=== PATIENT | male | born 1950 | race Caucasian/White ===

== ENCOUNTER 2022-10-05 18:52 | Inpatient (IN) | payer MEDICARE, OTHER, SELFPAY ==
[2022-10-05 18:58] VITALS: BP 148/75; PULSE 70; RESP 16; TEMP 36.8; O2SAT 96; BMI 27.3
[2022-10-05 19:01] LABS: Glucose Point of Care 273 mg/dL (70-110)
--- NOTE | 2022-10-05 19:05 | ECG_ITS ---
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 Measurements Intervals [place] Rate: 62 P: 16 [place]: 170 QRS: 63 QRSD: 92 T: 62 QT: 390 QTc: 399 Interpretive Statements SINUS RHYTHM No previous ECG available for comparison Electronically Signed On 10-06-2022 12:16:43 CDT by Harman Holt M.D. [email or web address]
--- NOTE | 2022-10-05 19:06 | CTR_ITS ---
PROCEDURE INFORMATION: Exam: CT Head Without Contrast Exam date and time: 10/05/2022 7:15 PM Age: 72 years old Clinical indication: Visual disturbance; Additional info: Stroke like symptoms TECHNIQUE: Imaging protocol: Computed tomography of the head without contrast. Radiation optimization: All CT scans at this facility use at least one of these dose optimization techniques: automated exposure control; mA and/or kV adjustment per patient size (includes targeted exams where dose is matched to clinical indication); or iterative reconstruction. REPORTING DATA: Count of CT and Cardiac NM exams in prior 12 months: This patient has received 0 known CTs and 0 known cardiac nuclear medicine studies in the 12 months prior to the current study. COMPARISON: No relevant prior studies available. RADIATION DOSE METRICS: Total DLP (mGy-cm): 1213 FINDINGS: Brain: No hemorrhage. No edema. Mild diffuse cerebral atrophy. Old lacunar infarct noted in the right thalamus. No mass effect. Cerebral ventricles: No ventriculomegaly. Paranasal sinuses: Mucosal thickening of the right sphenoid sinus. The rest of the paranasal sinuses are well pneumatized. Mastoid air cells: Visualized mastoid air cells are well aerated. Bones/joints: Unremarkable. No acute fracture. Soft tissues: Unremarkable. CT/CT head wo con* [id number] IMPRESSION: 1. No acute intracranial abnormality. 2. Old lacunar infarct noted in the right thalamus.
--- NOTE | 2022-10-05 21:42 | W.ED.WEAKNES ---
HPI - Weakness General: Chief complaint: Weakness Stated complaint: stroke like symtome Time Seen by Provider: 10/05/22 21:42 History of Present Illness: 72-year-old gentleman presenting with abnormal neurologic symptoms primarily pain in the back of his head and left vision double vision with new abnormal left ocular movements. Reports having a complicated dental extraction under anesthesia approximately 1 week ago and noticed mild symptoms especially pain however subsequently had stitches removed and noticed the symptoms more profoundly. Intensity is moderate-severe. Worse with lateral gaze. No other specific changes in health, exacerbating, or alleviating factors identified. Onset (ago): week(s) Severity: moderate Exacerbating factors: other Associated symptoms: Reports headache(s) Review of Systems General: Reports: 10 or more systems reviewed and unremarkable except in HPI and below Neuro: Reports: headache(s) PFSH ED PFSH: Medical History (Updated 10/18/22 @ 08:02 by Nas Vasquez MD) Diabetes Hyperlipidemia Hypertension Surgical History (Updated 10/18/22 @ 08:02 by Nas Vasquez MD) No significant past surgical history Physical Exam Const: COMMON NORMALS: patient oriented x3 and alert GENERAL APPEARANCE: cooperative and well developed HENMT: COMMON NORMALS: normocephalic and atraumatic HEAD & SCALP: normocephalic and atraumatic Eye: COMMON NORMALS: Equal, round and reactive pupils present, negative for EOMs intact bilaterally, conjunctivae normal and normal visual khoury by confrontation CONJUNCTIVA: Yes conjunctivae normal SCLERA: sclerae normal PUPIL: Yes Equal, round and reactive pupils present Neck/C-Spine: COMMON NORMALS: supple GENERAL: Yes trachea midline Resp: COMMON NORMALS: normal respiratory effort EFFORT & INSPECTION: Yes able to speak in complete sentences Cardio: COMMON NORMALS: regular rate and regular rhythm RATE: regular rate RHYTHM: regular rhythm GI: COMMON NORMALS: Soft to palpation PALPATION: Yes Soft to palpation and No Tenderness to palpation present (GI) PERCUSSION: normal to percussion Extremity: GENERAL: Yes normal exam except as noted and No edema Neuro: COMMON NORMALS: patient oriented x3, moves all extremities, no focal motor deficits and no sensory deficits noted; negative for CN's II-XII intact bilaterally (Left MANSOOR) SENSORIUM/ORIENTATION: Yes alert and No Orientation impaired Psych: COMMON NORMALS: mental status grossly normal and Normal thought process present THOUGHT PROCESS: Normal thought process present Course Vital Signs: Vital signs: Vital Signs Temperature 97.9 F 10/09/22 11:37 Pulse Rate 59 L 10/09/22 11:37 Respiratory Rate 20 H 10/09/22 11:37 Blood Pressure 135/73 10/09/22 11:37 Pulse Oximetry 94 10/09/22 11:37 Oxygen Delivery Me thod Room Air 10/09/22 11:37 MDM - Weakness Medical Decision Making 72-year-old gentleman presenting for headache and visual disturbance. Concern for strokelike symptoms with what appears to be intranuclear ophthalmoplegia involving the left eye. The left eye will not cross midline to gaze to the right. No proptosis. PERRLA. Labs with no leukocytosis, mild hemoconcentration. Metabolic panel without acute electrolyte derangement. No UTI. CT head negative for hemorrhage or mass. Normal intraocular pressures by tonometer. Likely stroke with MANSOOR however there are mimics and patient requires further evaluation inpatient optimization of this is stroke for prevention of further strokes. The results of ED evaluation were discussed with the patient including plan for admission due to requirement for level of care not available if discharged to prevent significant worsening/deterioration. Patient agreeable with plan. Discussed with hospitalist service who was agreeable to admit patient. Medical Records I reviewed the patient's medical records. Lab Data I reviewed the patient's lab results. 10/09/22 04:50 10/09/22 04:[address] 10/05/22 19:06 IMPRESSION: 1. No acute intracranial abnormality. 2. Old lacunar infarct noted in the right thalamus. Head MRI 10/06/22 02:16 IMPRESSION: 1. Quality is compromised by motion artifact. 2. No acute infarct. 3. Moderate small vessel chronic ischemic disease and remote RIGHT thalamic lacunar infarct. 4. RIGHT sphenoid sinus disease. Head MRA 10/06/22 12:06 IMPRESSION: 1. No [place] aneurysm. 2. No vascular malformation identified. 3. Very mild atherosclerosis distal carotid arteries and the proximal middle cerebral arteries. Brain/Orbits MRI 10/06/22 12:29 IMPRESSION: Negative MRI orbits. No masses or abnormal enhancement. No abnormality noted along the course of the 3rd cranial nerve. Laboratory Results WBC 9.5 10^3/uL (4.0-10.0) 10/07/22 04:02 RBC 5.58 10^6/uL (4.1-5.3) H 10/07/22 04:02 Hgb 15.9 g/dL (11.7-16.6) 10/07/22 04:02 Hct 48.2 % (42.0-52.0) 10/07/22 04:02 MCV 86.4 fl (80-94) 10/07/22 04:02 MCH 28.5 pg (28.0-34.0) 10/07/22 04:02 MCHC 33.0 g/dL (30.0-36.0) 10/07/22 04:02 RDW 13.6 % (12.1-15.1) 10/07/22 04:02 Plt Count 210 10^3/cmm (130-400) 10/07/22 04:02 MPV 10.9 fL (7.4-10.4) H 10/07/22 04:02 Neut % (Auto) 89.6 % 10/07/22 04:02 Lymph % (Auto) 7.5 % 10/07/22 04:02 [place] % (Auto) 2.5 % 10/07/22 04:02 Eos % (Auto) 0.0 % 10/07/22 04:02 Baso % (Auto) 0.1 % 10/07/22 04:02 Neut # (Auto) 8.54 10^3/uL (1.8-7.7) H 10/07/22 04:02 Lymph # (Auto) 0.7 10^3/uL (0.8-4.8) L 10/07/22 04:02 [place] # (Auto) 0.2 10^3/uL (0.2-0.9) 10/07/22 04:02 Eos # (Auto) 0.0 10^3/uL (0.0-0.8) 10/07/22 04:02 Baso # (Auto) 0.0 10^3/uL (0.0-0.1) 10/07/22 04:02 Nucleated RBC % (auto) 0 % 10/07/22 04:02 Nucleated RBCs # 0.0 /100WBC 10/07/22 04:02 ESR 14 mm/hr (0-10) H 10/06/22 10:17 Sodium 135 mmol/L (136-145) L 10/07/22 04:02 Potassium 4.3 mmol/L (3.5-5.1) 10/07/22 04:02 Chloride 101 mmol/L (98-107) 10/07/22 04:02 Carbon Dioxide 21 mmol/L (22-29) L 10/07/22 04:02 Anion Gap 17.3 (5-19) 10/07/22 04:02 BUN 20 mg/dL (8-23) 10/07/22 04:02 Creatinine 0.7 mg/dL (0.7-1.2) 10/07/22 04:02 GFR Calculation Not Reportable 10/07/22 04:02 Glucose 211 mg/dL (65-115) H 10/07/22 04:02 POC Glucose 196 mg/dL (70-110) H 10/07/22 07:53 Estimat Average Glucose 214 10/06/22 05:21 Hemoglobin A1c 9.1 % (4.0-6.0) H 10/06/22 05:21 Calculated Osmolality 289 mOsm/kg (285-295) 10/07/22 04:02 Lactic Acid 0.9 mmol/L (0.5-2.2) 10/06/22 05:21 Calcium 8.6 mg/dL (8.5-10.5) 10/07/22 04:02 Magnesium 2.1 mg/dL (1.7-2.3) 10/07/22 04:02 Total Bilirubin 0.4 mg/dL (0.15-1.2) 10/07/22 04:02 AST 12 U/L (0-40) 10/07/22 04:02 ALT 11 U/L (0-41) 10/07/22 04:02 Alkaline Phosphatase 66 U/L (40-130) 10/07/22 04:02 C-Reactive Protein 4.7 mg/L (0.0-4.9) 10/06/22 10:17 Total Protein 6.6 g/dL (6.6-8.7) 10/07/22 04:02 Albumin 3.7 g/dL (3.5-5.2) 10/07/22 04:02 Globulin 2.9 g/dL (1.3-4.6) 10/07/22 04:02 Triglycerides 184 mg/dL (0-150) H 10/06/22 05:21 Cholesterol 149 mg/dL (0-200) 10/06/22 05:21 LDL Cholesterol, Calc 77 mg/dL (50-129) 10/06/22 05:21 HDL Cholesterol 35 mg/dL (60-100) L 10/06/22 05:21 LDL/HDL Ratio 2.20 RATIO (0.00-3.22) 10/06/22 05: Cholesterol/HDL Ratio 4.26 mg/dL (1.0-5.00) 10/06/22 05:21 Vitamin B12 > 2000 pg/mL (232-1245) H 10/06/22 10:17 Folate > 20.0 ng/mL (4.5-32.2) 10/06/22 10:17 Procalcitonin 0.04 ng/mL (0-0.5) 10/06/22 10:17 TSH 1.06 uIU/mL (0.27-4.20) 10/06/22 05:21 Urine Color Light yellow (Yellow) 10/05/22 22:00 Urine Appearance Clear (CLEAR) 10/05/22 22:00 Urine pH 7 (5-7) 10/05/22 22:00 Ur Specific [place] 1.005 (1.005-1.030) 10/05/22 22:00 Urine Protein Neg (Negative) 10/05/22 22:00 Urine Glucose (UA) 4+ (Normal) H 10/05/22 22:00 Urine Ketones 1+ (Negative) H 10/05/22 22:00 Urine Blood Neg (Negative) 10/05/22 22:00 Urine Nitrate Negative (Negative) 10/05/22 22:00 Urine Bilirubin Neg (Negative) 10/05/22 22:00 Urine Urobilinogen Neg mg/dL (Negative) 10/05/22 22:00 Ur Leukocyte Esterase Negative (Negative) 10/05/22 22:00 HELEN IFA Animal Tis Res Negative (NEGATIVE) 10/06/22 10:17 GLORIA-1 Antibody <1.0 neg AI (<1.0 NEG) 10/06/22 10:17 SS-A Antibody <1.0 neg AI (<1.0 NEG) 10/06/22 10:17 SS-B Antibody <1.0 neg AI (<1.0 NEG) 10/06/22 10:17 Sm (Perez) Antibody <1.0 neg AI (<1.0 NEG) 10/06/22 10:17 SPEECH LANG PATH Antibody <1.0 neg AI (<1.0 NEG) 10/06/22 10:17 Scl-70 Antibody <1.0 neg AI (<1.0 NEG) 10/06/22 10:17 Anti-ds DNA IgG (Crith) Negative (NEGATIVE) 10/06/22 10:17 Centromere B Antibody <1.0 neg AI (<1.0 NEG) 10/06/22 10:17 Anti-MuSK Ab Method See note 10/06/22 10:17 Anti-MuSK Tech Res See note 10/06/22 10:17 Anti-MuSK Ab Interp See note 10/06/22 10:17 Anti-MuSK Ab Comment See note 10/06/22 10:17 Anti-MuSK References See note 10/06/22 10:17 Thyroid Peroxidase Ab <1 IU/mL (<9) 10/06/22 10:17 Acetylchol Rcpt Bind Ab <0.30 nmol/L 10/06/22 10:17 Complement C3c 116 mg/dL (82-185) 10/06/22 10:17 Complement C4c 22 mg/dL (15-53) 10/06/22 10:17 CH50 Classical Pathway 42 U/mL (31-60) 10/06/22 10:17 RPR Nonreactive (Nonreactive) 10/06/22 10:17 Lyme Ab (Western Blot) <0.90 index 10/06/22 10:17 Lyme IgG (Western Blot) Cancelled 10/06/22 10:17 Lyme IgG (Western Blot 2) Cancelled 10/06/22 10:17 Lyme IgG 18 kDa Band Cancelled 10/06/22 10:17 Lyme IgG 23 kDa Band Cancelled 10/06/22 10:17 Lyme IgG 28 kDa Band Cancelled 10/06/22 10:17 Lyme IgG 30 kDa Band Cancelled 10/06/22 10:17 Lyme IgG 39 kDa Band Cancelled 10/06/22 10:17 Lyme IgG 41 kDa Band Cancelled 10/06/22 10:17 Lyme IgG 45 kDa Band Cancelled 10/06/22 10:17 Lyme IgG 58 kDa Band Cancelled 10/06/22 10:17 Lyme IgG 66 kDa Band Cancelled 10/06/22 10:17 Lyme IgG 93 kDa Band Cancelled 10/06/22 10:17 Lyme IgM Ab (WB) Cancelled 10/06/22 10:17 Lyme IgM Ab (Immblot) Cancelled 10/06/22 10:17 Lyme IgM 23 kDa Band Cancelled 10/06/22 10:17 Lyme IgM 39 kDa Band Cancelled 10/06/22 10:17 Lyme IgM 41 kDa Band Cancelled 10/06/22 10:17 E. chaffeensis IgG Ab <1:64 10/06/22 10:17 E. chaffeensis IgM Ab <1:20 10/06/22 10:17 E. chaffeensis Interp See note 10/06/22 10:17 E. chaffeensis Comment Not Reportable 10/06/22 10:17 Rickettsia IgG Ab Not detected 10/06/22 10:17 Rickettsia IgM Ab Not detected 10/06/22 10:17 Discharge Plan Discharge Patient Disposition: Placed in Observation Admit Provider: Rima Borrego Clinical Impression: Stroke, MANSOOR (internuclear ophthalmoplegia) Discharge Diet: Usual diet Discharge Activity: Resume usual activity Coding Level of Care Code ED Optical Effects Layout Person for Flako Gardner
[2022-10-05 22:16] LABS: Add Urine Microscopic? NO; Charge for UA Resulting for Rev
[2022-10-05 22:19] LABS: Basophils # 0.1 10^3/uL (0.0-0.1); Basophils % 0.6 %; Bilirubin Urine Neg (Negative); Blood Urine Neg (Negative); Eosinophils # 0.2 10^3/uL (0.0-0.8); Eosinophils % 1.8 %; Glucose Urine UA 4+ (Normal); Hematocrit 52.5 % (42.0-52.0); Hemoglobin 16.8 g/dL (11.7-16.6); Ketones Urine 1+ (Negative); Leukocyte Esterase Urine Negative (Negative); Lymphocytes # 1.7 10^3/uL (0.8-4.8); Lymphocytes % 19.4 %; Mean Corpuscular Hemoglobin 28.4 pg (28.0-34.0); Mean Corpuscular Volume 88.7 fl (80-94); Mean Platelet Volume 10.9 fL (7.4-10.4); Monocytes % 10.7 %; Neutrophils # 6.02 10^3/uL (1.8-7.7); Neutrophils % 67.3 %; Nitrate Urine Negative (Negative); Nucleated Red Blood Cells % 0 %; Platelet Count 207 10^3/cmm (130-400); Protein Urine Neg (Negative); Red Blood Count 5.92 10^6/uL (4.1-5.3); Specific Gravity, Urine 1.005 (1.005-1.030); Urine Appearance Clear (CLEAR); Urine Color Light yellow (Yellow); Urobilinogen Urine Neg (Negative); pH Urine 7 (5-7)
[2022-10-05 22:22] VITALS: BP 165/75; PULSE 60; RESP 16; O2SAT 97
[2022-10-05 22:30] LABS: Anion Gap 17.7 (5-19); Blood Urea Nitrogen 13 mg/dL (8-23); Calcium 9.7 mg/dL (8.5-10.5); Carbon Dioxide 26 mmol/L (22-29); Chloride 98 mmol/L (98-107); Glucose 262 mg/dL (65-115); Osmolality Calculated 293 mOsm/kg (285-295); Potassium 4.7 mmol/L (3.5-5.1); Sodium 137 mmol/L (136-145)
[2022-10-05 23:15] VITALS: BP 144/81; PULSE 62; RESP 16; O2SAT 95
[2022-10-06] VITALS (14 sets, daily range): BP systolic 120–157; BP diastolic 51–82; PULSE 56–72; RESP 16–18; TEMP 36.4–36.8; O2SAT 91–95
[2022-10-06] MEDS: tetracaine 0.5% Op Soln 4 mL Btl 1 DROP EYE-BOTH (00:46)
--- NOTE | 2022-10-06 00:56 | PM.HP ---
Providers/Chief Complaint Admitting Physician: Rima Borrego MD Chief Complaint: stroke like symtome History of Present Illness Travis Easton is a 72 year old male with past medical history of diabetes, hypertension, hyperlipidemia who presented to the hospital today with complaint of lazy eye . He states that his eye has been going outward and not tracking as it showed. His left eye is doing what ever it wants to do and he is unable to control it. He is also been having some pain in the left eye socket and back of head and he has been taking Tylenol for it. 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 When he covers his left eye he is able to do okay and the pain gets better however when he tries to see out of both eyes he is experiencing double vision especially when going up and down stairs. He says the symptoms for started about 5 days ago. And since he has not gotten better he decided to come to the ER today. 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 Denies having a history of stroke however CT head in the ER today showed a remote old lacunar infarct. I am not sure if patient was aware of this. He says he went to the dentist 5 days ago and had a wisdom tooth extraction done with another tooth that was right in front of it. He says there was some complication and he had to spend 3 hours and oral surgery. He believes since then his symptoms have started. Denies slurred speech denies any weakness in the body or any other focal neurological symptoms at this time. Denies being nauseous. Denies seeing halos around his eyes. Eye has not been red and is not fixed and hard. Denies a history of glaucoma or any other ophthalmologic issues. He says also 5 days ago for about 2 to 3 hours he had a lot of gas and had some chest pain associated with it however after gas was relieved and he had to sit up to try to burp he felt better. He has had a stress test before but that was few years ago and it was normal at the time. He says he takes a lot of vitamins such as vitamin C vitamin D zinc cinnamon and men's vitamins. He is quite well versed with his history. Daughter is present at bedside. ED course: CT head showed old lacunar infarct involving the right thalamus on arrival blood pressure 165/75 respirate 16, pulse 60, temperature 98.2, saturating 97% on room air. WBC 9.0, hemoglobin 16.8, platelets 207, glucose 4+ urine, ketones 1+ in urine. Negative UA otherwise. Hemoglobin 16.8. ER examined the patient and noted that left eye will not cross midline to gaze to the right. No proptosis PERRLA. Intraocular pressures were checked. Left 12, right 13. Medications/Allergies Allergies Allergy/AdvReac Type Severity Reaction Status Date / Time No Known Allergies Allergy Verified 10/05/22 19:06 Vitals/I&O/Wt Last Vital Signs Temp 98.2 F 10/05/22 18:58 Pulse 62 10/05/22 23:15 Resp 16 10/05/22 23:15 BP 144/81 10/05/22 23:15 Pulse Ox 95 10/05/22 23:15 O2 Del Method Room Air 10/05/22 18:58 Weight last 48 hrs Weight 86.636 kg Physical Exam Narrative: General: Alert oriented x3, patient seen sitting up in bed appearing comfortable at this time no acute distress. HEENT: Normocephalic, atraumatic, EOMI, breathing room air. Cardio: Regular rate rhythm, normal S1-S2 Respiratory: Good bilateral air entry, no wheezes no rhonchi appreciated GI: Abdomen soft, nontender, nondistended, bowel sounds + Behavior: Appropriate and cooperative Extremities: Pulses 2+, no edema, no cyanosis Neuro: Left eyelid droopy. Left side of face slightly droopy compared to right. Left eye does not cross midline to gaze to the right. eyes warm not tender to touch not hard and fixed. Left eye unable to track. Strength equal upper and lower extremity. Left side 4 out of 5, right side 5 out of 5. Ogwg-no-mddy normal, [id number] normal. Face symmetrical midline. Data 10/05/22 22:00 10/05/22 22:00 A&P Assessment and plan (1) Stroke: (2) MANSOOR (internuclear ophthalmoplegia): (3) Diabetes: (4) Hypertension: (5) Hyperlipidemia: Plan #New onset internuclear ophthalmoplegia, diplopia #History of prior lacunar infarct right thalamus #Diabetes mellitus #Hypertension #Hyperlipidemia ? CT head negative for new stroke. I will check MRI brain without contrast ? We will start patient on aspirin and Plavix. Add atorvastatin 80 daily ? I do not believe this is glaucoma or multiple sclerosis. Intraocular pressures are also normal. Denies seeing any halos around objects, redness in the eye, warmth or hard feeling in eyeball. Has not experiencing any blurry vision. ? His eye pain is most likely attributed to the fact that left eye is not in line with the right eye and he is having diplopia. I would recommend we patch the left eye for time being. Tylenol does relieve the pain. We will continue on that. ? Med rec needs to be completed. Patient has given a list of medications but as of now it has been misplaced. The only medicine he told me verbally was Farxiga. Vitamin E vitamin D zinc cinnamon and vitamins. Once I have the full list I will order his home medications. Apparently he is also on blood pressure medicine at home and is well controlled. Patient is not on insulin from what he told me verbally. ? I would recommend neurology consult once MRI is complete. Symptoms started 4 to 5 days ago. He is outside the window for tPA at this time. ? Check hemoglobin A1c, TSH, lipid profile, vitamin B12 ? Low-dose intensity sliding scale insulin ? Check echocardiogram ? Placed on cardiac telemetry ? Neuro check every 2 hours ? Fall precautions Full code SCDs, heparin subcu twice daily Attestations Medical Necessity Statement*: Observation for MANSOOR Coding Level of Care Code G0425 (30 min) TH Encounter Time (min): 45 Patient seen via Telehealth in the acute care setting (hospital or ED location) by agreement and consent of patient or patient sales representative printing paper. Telehealth technology used during the visit includes video and audio. This patient encounter is appropriate and reasonable under the circumstances given the patient?s particular presentation at this time. The patient has been advised of the potential risks and limitations of this mode of treatment (including but not limited to the absence of in-person examination at this time) and has agreed to be treated by an off-site physician for this visit. If deemed clinically necessary from this telehealth visit, or if condition or consent for telehealth visit changes, an in-person visit will be arranged. For this encounter, total time for the origination of telehealth care on this date is as shown. Diagnoses Stroke I63.9 MANSOOR (internuclear ophthalmoplegia) H51.20 Diabetes E11.9 Hypertension I10 Hyperlipidemia E78.5
[2022-10-06] MEDS: acetaminophen 325 mg Tablet 650 MG PO ×2 (01:36→09:09)
--- NOTE | 2022-10-06 02:16 | MR_ITS ---
WS: [id number] MRI BRAIN WITHOUT CONTRAST HISTORY: internuclear ophthalmoplegia COMPARISON: None available. TECHNIQUE: Diffusion imaging, multiplanar T1, T2 and FLAIR imaging obtained. Multisequence significant motion artifact. No evidence for acute infarct or hemorrhage. Martinez-white matter differentiation is normal. No acute infarct. Numerous T2 foci of increased signal scattered throughout the brain. There is invol vement of the [place] and the supratentorial brain. No prior large territory infarct. Very small RIGHT t halamic infarct is better identified on the CT. Ventricles and extra-axial spaces are normal. No inferior displacement of cerebellar tonsils. The sella turcica and pituitary gland are unremarkabl e. Dural venous sinuses and [place] demonstrate no abnormality on this unenhanced studies. Paranasal sinuses: Moderate mucoperiosteal thickening and a small air-fluid level RIGHT sphenoid sinu s. Mastoid air cells: Normal. Calvarium and scalp: Intact. MR/MR head wo con* [id number] IMPRESSION: 1. Quality is compromised by motion artifact. 2. No acute infarct. 3. Moderate small vessel chronic ischemic disease and remote RIGHT thalamic la cunar infarct. 4. RIGHT sphenoid sinus disease.
--- NOTE | 2022-10-06 02:38 | USCV_ITS ---
Travis Easton Age: 72 Gender: M : 1950 Exam Date: 10/06/2022 07:33 Ordering Phys: Rima Borrego MD Technologist: Raciel Blanchard [place] [facility] [place]: chest pain BP: 132 / 83 HR: 57 Rhythm: Sinus Technical Quality: Adequate MEASUREMENTS (Male / Female) Normal Values 2D ECHO LV Diastolic Diameter PLAX 4.4 cm 4.2 - 5.9 / 3.9 - 5.3 cm LV Systolic Diameter PLAX 2.7 cm IVS Diastolic Thickness 1.2 cm 0.6 - 1.0 / 0.6 - 0.9 cm IVS Systolic Thickness 1.7 cm LVPW Diastolic Thickness 1.3 cm 0.6 - 1.0 / 0.6 - 0.9 cm LVPW Systolic Thickness 1.8 cm LV Ejection Fraction 2D Teich 69.1 % LV Ejection Fraction MOD 2C 61.3 % LV Ejection Fraction 2C AL 60.7 % LA Diameter 3.5 cm M-MODE LV Diastolic Diameter MM 5.1 cm 4.2 - 5.9 / 3.9 - 5.3 cm LV Systolic Diameter MM 3.4 cm LV Ejection Fraction MM Teich 61.2 % IVS Diastolic Thickness MM 1.2 cm 0.6 - 1.0 / 0.6 - 0.9 cm IVS Systolic Thickness MM 1.9 cm LVPW Diastolic Thickness MM 1.3 cm 0.6 - 1.0 / 0.6 - 0.9 cm LVPW Systolic Thickness MM 1.7 cm RV Diastolic Diameter MM 1.9 cm Aortic Annulus Diameter 3.7 cm LA Ao Ratio MM 0.9 MV E Point Septal Separation 0.7 cm DOPPLER AV Peak Velocity 153.0 cm/s LVOT Peak Velocity 119.0 cm/s MV Area PHT 2.9 cm squared Mitral E to A Ratio 1.0 MV E' Velocity 43.0 cm/s Mitral E to MV E' Ratio 10.2 Mitral E to LV E' Lateral Ratio 9.0 Mitral E to LV E' Septal Ratio 11.8 TR Peak Velocity 164.8 cm/s TR Peak Gradient 10.9 mmHg RV Acceleration Time 0.1 s FINDINGS Left Ventricle Left ventricle is normal size. LV systolic function is normal with EF 55 to 60%. No regional wall motion abnormalities are seen. Right Ventricle Normal in size and function Right Atrium Normal in size Left Atrium Dilated Mitral Valve Strcuturally normal mitral valve. Trace mitral regurgitation. Aortic Valve Structurally normal aortic valve. No significant stenosis or regurgitation seen. Tricuspid Valve Mild tricuspid regurgitation. Insufficient TR jet to calculate RVSP Pulmonic Valve Not well visualized Pericardium Normal Aorta Normal in size IVC Appears to be normal CONCLUSIONS LV systolic function is normal with EF of 55 to 60%. Left atrial dilation Trace mitral regurgitation Mild tricuspid regurgitation No comparison studies are available Harman Holt MD (Electronically Signed) Final Date: 06 October 2022 12:42 S
[2022-10-06] MEDS: sodium chloride 0.9% 1,000 ML 75 ML IV ×2 (02:41→20:18)
[2022-10-06] MEDS: heparin 5,000 unit/mL INJ 1 mL 5000 UNIT SUBCUT ×2 (02:41→12:03)
[2022-10-06 06:23] LABS: Lactic Sepsis W/Reflex 0.9 mmol/L (0.5-2.2)
[2022-10-06] MEDS: ibuprofen 200 mg Tablet 400 MG PO (06:34)
[2022-10-06 06:35] LABS: Chol HDL Ratio 4.26 mg/dL (1.0-5.00); Cholesterol 149 mg/dL (0-200); HDL Cholesterol 35 mg/dL (60-100); LDL Cholesterol Calculated 77 mg/dL (50-129); Thyroid Stimulating Hormone 1.06 uIU/mL (0.27-4.20); Triglycerides 184 mg/dL (0-150)
[2022-10-06 06:39] LABS: Glucose Point of Care 361 mg/dL (70-110)
[2022-10-06 07:00] LABS: Estmated Average Glucose 214; Hemoglobin A1C 9.1 % (4.0-6.0)
[2022-10-06] MEDS: amlodipine 5 mg Tablet PO (08:49)
[2022-10-06] MEDS: aspirin 81 mg EC Tablet PO (08:51)
[2022-10-06] MEDS: clopidogrel 75 mg Tablet PO (08:51)
[2022-10-06] MEDS: pantoprazole DR 40 mg Tablet PO (08:51)
[2022-10-06 11:03] LABS: Erythrocyte Sedimentation Rate 14 mm/hr (0-10)
[2022-10-06 11:20] LABS: Rapid Plasma Reagin Syphilis Nonreactive (Nonreactive)
[2022-10-06] MEDS: insulin glargine 100 units/1 mL 5 UNIT SUBCUT (11:34)
[2022-10-06] MEDS: methylPREDNISolone sod succ 1,000 MG in sodium chloride 0.9% 250 ML 258 MG IV (11:35)
[2022-10-06 12:02] LABS: Glucose Point of Care 174 mg/dL (70-110)
[2022-10-06] MEDS: insulin lispro 100 unit/1 mL SUBCUT ×3 (12:02→21:24)
--- NOTE | 2022-10-06 12:06 | MR_ITS ---
WS: [id number] MRA ANGIOGRAPHY [place] HISTORY: cn3 palsy, question aneurysm. COMPARISON: None available. TECHNIQUE: 3-D MR angiography is performed of the [place]. All images are reviewed including source images. Distal vertebral and basilar arteries are intact with no significant stenosis or plaque. Posterior ce rebral arteries are normal course and caliber. Posterior communicating arteries are both patent. Intracranial portion of the internal carotid arteries are normal course. Very minimal atherosclerotic plaque in the cavernous sinuses and the M1 segments. Slightly smaller RIGHT M1 segment. No high-grad e occlusion. No aneurysm. No significant atherosclerosis, stenosis or aneurysm identified. Middle and anterior cerebral arteries are patent. Anterior communicating artery is also normal. No vascular mal formations or mass effect upon the [place]. MR/MR angio head wo con [id number] IMPRESSION: 1. No [place] aneurysm. 2. No vascular malformation identified. 3. Very mild atherosclerosis distal carotid arteries and the proximal middle c erebral arteries.
[2022-10-06 12:19] LABS: Vitamin B12 > 2000 pg/mL (232-1245)
--- NOTE | 2022-10-06 12:29 | MR_ITS ---
WS: [id number] MRI ORBIT with and without CONTRAST. COMPARISON: Prior noncontrast MRI 10/06/2022. Multiplanar, multisequence imaging is performed with and without contrast. MultiHance 20 mL IV. Symmetric appearance of the orbits and globes. No soft tissue masses are identified. No abnormality. Meckel's cave or along the anterior brain stem through the prepontine cistern and intrapeduncular cis tern. No masses or abnormal enhancement. No displacement of the soft tissues or asymmetry. No pituita ry mass. Ventricles are normal size. Very mild cerebral atrophy. Again noted is moderate right-sided sphenoid sinusitis. No abscess cavities are identified in the reg ion of the 3rd cranial nerve. MR/MR head orbits wo/w* 86146/43 IMPRESSION: Negative MRI orbits. No masses or abnormal enhancement. No abnormality noted along the course of the 3rd cranial nerve.
--- NOTE | 2022-10-06 12:47 | PC.CHAP ---
Pastoral Care Encounter/Spiritual Assessment Type of Contact [] Declined account resolution analyst visit [] Patient/Family/Request visit [] Outpatient visit [] Follow-up visit [] Physician referral [] Code/Alert [x] Routine visit [] Staff referral [] Actively dying [] Patient sleeping [] Family support [] [] Out of room [] Palliative care [] [x] Receiving care in room [] Pre-surgical visit [] Trauma [] Long length of stay [] ICU visit [] Other: Relational/Emotional Strength [x] Patient feels connected with others/family/visitors/staff [] Distress [] Loneliness/isolation [] Abandonment Spirituality of Patient [x] Person of Raegan [] Attends Roman Catholic of their Raegan [x] Believes in Prayer [] Reads Bible or Presybeterian materials [] There are Spiritual issues to be addressed Commercial Driver Interventions [x] Prayer [x] Active listening [x] Non-anxious presence [x] Spiritual/emotional support [] Crisis/trauma care [x] Spiritual counseling [] Bereavement support [] Provided bereavement packet [] Provided Bible/devotional materials [] Provided toy/stuffed animal, coloring book to patient or family member [] Provided Communion [] Anointing/[place] [] Salvation [x] Completed spiritual assessment [] Other: Impact on Illness or Injury [] Angry [] Fearful [] Anxious [] Often cries [] Exhaustion [] Unable to work [] Unable to attend adventism [] Unable to walk/stand [] Unable to read [] Unable to drive [] Unable to eat/drink [] Unable to sleep [] Unable to be with family [] Patient intubated [] Other: Summary checking with doctor about more teatments has a good attitude well go home Time spent with patient 10 mins
[2022-10-06 12:55] LABS: Folate Level > 20.0 ng/mL (4.5-32.2)
[2022-10-06] MEDS: gadobenate dimeglumine 20 mL vial IV (13:18)
[2022-10-06 14:21] LABS: C Reactive Protein 4.7 mg/L (0.0-4.9)
[2022-10-06 14:28] LABS: Procalcitonin 0.04 ng/mL (0-0.5)
[2022-10-06 14:53] LABS: Glucose Point of Care 259 mg/dL (70-110)
--- NOTE | 2022-10-06 16:42 | P.CONIM_ITS ---
Providers/Reason For Consult Consulting Physician/Specialty*: Anupam Manuel MD general surgery Reason for Consult*: Need for temporal artery biopsy Requesting Physician: See below Attending Physician: Regino Cm MD History of Present Illness History of Present Illness Travis Easton is a 72 year old male who comes in stroke like symptoms with right sided headache and diplopia and problems with vision affecting ambulation. He currently had right eye patch on. There is concern patient may have temporal arteritis and is on steroids. He is to get MRA of brain looking for AVM. If negative then will proceed with bilateral temporal artery biopsies. Review of Systems Narrative: Constitutional: denies rigors, singnificant weight gain, increased appetite HEENT: denies chronic cough, blurry vision, excessive tearing, eye pain, flashing lights, odynophagia, painful mastication, change in voice, change in taste, chronic sore throat, hypersalivation Heart: denies racing heart, palpitations, othropnea, PND Lungs: denies hemoptysis, pain with deep inspiration, chronic bronchitis GI: denies hematemesis, hematochezia, dysphagia, tenesmus : denies polyuria, hematuria, painful micturation Musculoskeletal: denies hemarthrosis, Muscle wasting Neuro: denies new onset syncope, dysesthesia, ptosis face SKin: denies new onset hyperalgia, new rash new cyanosis Endocrine: denies new polyuria, polydipsia, polyphagia, heat intolerance, excessive energy Hem/Onc: denies new petechiae, swollen glands, new excessive epstaxis Psych: denies racing thought Medications/Allergies Home Medications Medication Instructions Recorded Confirmed Last Taken Type albuterol 90 mcg/actuation aerosol 180 mcg inhalation Q4H PRN cough 10/06/22 10/06/22 Unknown History inhaler or wheezing albuterol sulfate 2.5 mg/3 mL 2.5 mg inhalation QID PRN cough or 10/06/22 10/06/22 Unknown History (0.083 %) solution for nebulization wheezing amlodipine 5 mg tablet 5 mg PO DAILY 10/06/22 10/06/22 Unknown History antiox.multivit [id number] 280 1 cap PO DAILY 10/06/22 10/06/22 Unknown History mg-lutein 10 mg-zeaxanthin 2 mg capsule (I-Caps) aspirin 81 mg tablet,delayed 81 mg PO DAILY 10/06/22 10/06/22 Unknown History release atorvastatin 10 mg tablet 10 mg PO QPM 10/06/22 10/06/22 Unknown History cholecalciferol (vitamin D3) 50 50 mcg PO DAILY 10/06/22 10/06/22 Unknown History mcg (2,000 unit) capsule (Vitamin D3) cinnamon bark 500 mg capsule 500 mg PO DAILY 10/06/22 10/06/22 Unknown History (Cinnamon) dapagliflozin 10 mg tablet 10 mg PO DAILY 10/06/22 10/06/22 Unknown History (Farxiga) diclofenac sodium 1 % topical gel 2 g topical QID 10/06/22 10/06/22 Unknown History fluticasone fur. 100 mcg-umeclid 1 inh inhalation DAILY 10/06/22 10/06/22 Unkno wn History 62.5 mcg-vilant 25 mcg inhalat.powder (Trelegy Ellipta) garlic 200 mg tablet 200 mg PO DAILY 10/06/22 10/06/22 Unknown History irbesartan 300 mg tablet 300 mg PO DAILY 10/06/22 10/06/22 Unknown History metformin 1,000 mg tablet 1,000 mg PO BIDWMEAL 10/06/22 10/06/22 Unknown History multivitamin 1 tab PO DAILY 10/06/22 10/06/22 Unknown History omega-3 fatty acids-vitamin E 1 cap PO DAILY 10/06/22 10/06/22 Unknown History 1,000 mg capsule vitamin E 50 unit capsule 50 unit PO DAILY 10/06/22 10/06/22 Unknown History zinc 50 mg tablet 50 mg PO DAILY 10/06/22 10/06/22 Unknown History Allergies Allergy/AdvReac Type Severity Reaction Status Date / Time No Known Allergies Allergy Verified 10/05/22 19:06 Current Medications Generic Name Dose Route Start Last Admin Trade Name Freq PRN Reason Stop Dose Admin Acetaminophen 650 mg 10/06/22 00:57 10/06/22 09:09 Acetaminophen 325 Mg Tablet PO 650 mg Q6H PRN Administration Mild/Mod Pain Or Temp >/= 101 Amlodipine Besylate 5 mg 10/06/22 09:00 10/06/22 08:49 Amlodipine 5 Mg Tablet PO 5 mg DAILY POWER Administration Aspirin 81 mg 10/06/22 09:00 10/06/22 08:51 Aspirin 81 Mg Ec Tablet PO 81 mg DAILY POWER Administration Clopidogrel Bisulfate 75 mg 10/06/22 09:00 10/06/22 08:51 Clopidogrel 75 Mg Tablet PO 75 mg DAILY POWER Administration Heparin Sodium (Porcine) 5,000 unit 10/06/22 01:00 10/06/22 12:03 Heparin 5,000 Unit/Ml Inj 1 Ml SUBCUT 5,000 unit Q12H POWER Administration Sodium Chloride 1,000 mls @ 50 mls/hr 10/06/22 01:00 10/06/22 14:12 Sodium Chloride 0.9% IV 75 mls/hr .Q20H POWER Infusion Methylprednisolone Sodium 258 mls @ 258 mls/hr 10/06/22 11:00 10/06/22 14:12 Succinate 1,000 mg/ Sodium IV 10/09/22 11:59 Infused Chloride Q24H POWER Infusion Ibuprofen 400 mg 10/06/22 00:57 10/06/22 06:34 Ibuprofen 200 Mg Tablet PO 400 mg Q8H PRN Administration mild/mod pain or temp >/= 101 Insulin Glargine 5 unit 10/06/22 11:00 10/06/22 11:34 Insulin Glargine 100 Units/1 Ml SUBCUT 5 unit Q24H POWER Administration Insulin Human Lispro 0 unit 10/06/22 08:00 10/06/22 12:02 Insulin Lispro 100 Unit/1 Ml SUBCUT 4 unit WM&BEDTIME POWER Administration Protocol Pantoprazole Sodium 40 mg 10/06/22 09:00 10/06/22 08:[address] 40 Mg Tablet PO 40 mg DAILY POWER Administration Vitals/I&O/Wt Last Vital Signs Temp 98.3 F 10/06/22 16:00 Pulse 67 10/06/22 16:00 Resp 18 10/06/22 16:00 BP 122/64 10/06/22 16:00 Pulse Ox 93 10/06/22 15:53 O2 Del Method Room Air 10/06/22 15:53 10/06/22 10/06/22 10/06/22 06:59 14:59 22:59 Intake Total 120 / 120 954.25 / 954.25 Balance 120 / 120 954.25 / 954.25 Weight last 48 hrs Weight 191 lb Physical Exam Narrative: Patient is a well developed well nourished and in NAD and is afebrile with vitals stable and is answering questions appropriately with a normal affect and is alert and oriented x3 HEENT: normocephalic with normal external ears and nonicteric, oral mucosa moist and dentition normal for age, trachea midline with no large masses visualized Heart: RRR, no gallops murmurs or rubs, normal PMI with no thrills Lungs: normal excursions, no loud audible wheezing, no subcutaneous emphysema Abdomen: nondistended, no gross hepatosplenomegaly, no masses, no rigidity or rebound, no loud borborygmi Neuro: MARIN, grossly normal sensation Musculoskeletal: good muscle tone, no fasciculations, normal gait Skin: pink warm and dry with no rashes or ecchymosis Vascular: good radial pulses, no ulceration, less than 2 second capillary refill in hand : deferred Data 10/05/22 22:00 10/05/22 22:00 A&P Assessment and plan (1) Headache: Plan on bilateral temporal artery biopsies tomorrow at 1030 am unless MRA shows shows abnormality accounting for symptoms. He understands risks, benefits and alternatives to procedure and wishes to proceed. Risks include bleeding, infection, cardiopulmonary problems, poor cosmesis, more surgery, missed lesion. Coding Level of Care Code 46475 Diagnoses Headache R51.9
[2022-10-06 17:52] LABS: Glucose Point of Care 311 mg/dL (70-110)
--- NOTE | 2022-10-06 18:19 | P.PN_ITS ---
Subjective Subjective: - Patient was examined multiple times throughout the morning -Early in the morning he was examined, he tells me that since his dental procedure and his dental extraction, he started to develop neck pain left-sided, also jaw pain, no clicking, no popping, no dislocation, -He saw his dentist, who did a reexamination without any recurrent concerns for infection -Then he started develop blurry vision, and then inability to medially deviate left eye -He tells me that the big reason why he came to the hospital is now he has blurry vision in the left eye, worsening inability to deviate left eye, eye pain, -No floaters, no photopsia, no nausea, no vomiting, currently no neck stiffness -He does report jaw pain with use, such as chewing -His eye currently on examination is deviated down and out, with moderate ptosis, pupils equal round reactive to light, slightly sluggish on the left but, no significant anisocoria during my examination he does also now complain of left temporal tenderness -No headache -I did do visual field testing, he does have blurry vision in the left eye, but peripheral visual field seems intact, he is able to discern finger movement, and numbers in his visual field and is also on his central visual field able to read a piece of paper using the left eye -Concerns for cranial 3rd nerve palsy, etiology could be aneurysm, space- occupying lesion, infection, compression, possible vasculitis, he does have diabetes, it could be ischemic palsy, especially his diabetic no significant trauma, no migraine -MRI of the brain ordered, no acute findings -MRI of the brain ordered for concerns for concerns for vascular aneurysm and compression of cranial nerve #3, no acute findings -MRI of the brain ordered for space-occupying lesion, tumor which was unremarkable -ESR 14 -Given his temporal tenderness, complaints of jaw pain, neck pain, blurry vision I deviated down and out, started on high-dose steroids for concerns for giant cell arteritis -Spoke to neurology at [facility], they recommended work-up as above, further monitoring -I also spoke to ophthalmology, currently no cheese cutter available for inpatient consultation, however patient can certainly follow-up as outpatient recommended continued monitoring and work-up as above -Certainly myasthenia gravis could also be a possibility -I had extensive discussion with patient, about these possibilities and his da ughter -Plan is to proceed with temporal artery biopsy tomorrow, continue steroids, myasthenia gravis antibodies ordered, will monitor blood sugars as inpatient -No other focal neurologic deficits I think stroke is fairly unlikely -But certainly given his diabetes ischemia to the cranial nerve #3 is certainly high possibility Vitals/I&O/Wt Last Vital Signs Temp 98.3 F 10/06/22 17:29 Pulse 67 10/06/22 17:29 Resp 18 10/06/22 17:29 BP 122/64 10/06/22 17:29 Pulse Ox 93 10/06/22 15:53 O2 Del Method Room Air 10/06/22 15:53 10/06/22 10/06/22 10/06/22 06:59 14:59 22:59 Intake Total 120 / 120 954.25 / 954.25 Balance 120 / 120 954.25 / 954.25 Weight last 48 hrs Weight 86.636 kg Physical Exam Const: COMMON NORMALS: no acute distress, patient oriented x3 and alert ORIENTATION/CONSCIOUSNESS: Yes oriented to person, Yes oriented to place and Yes oriented to time HENMT: COMMON NORMALS: normocephalic HEAD & SCALP: normocephalic Neck/C-Spine: COMMON NORMALS: no meningeal signs Resp: COMMON NORMALS: normal respiratory effort, No retractions, No use of accessory muscles and clear to auscultation bilaterally AUSCULTATION: clear to auscultation bilaterally Cardio: COMMON NORMALS: regular rate, regular rhythm, S1 normal heart sound present and S2 normal heart sound present RATE: regular rate RHYTHM: regular rhythm HEART SOUNDS: S1 normal heart sound present and S2 normal heart sound present GI: COMMON NORMALS: Normal to inspection, nondistended, normoactive bowel sounds present and non-tender Neuro: COMMON NORMALS: patient oriented x3, moves all extremities, no focal motor deficits and no sensory deficits noted SENSORIUM/ORIENTATION: Yes alert, Yes oriented to person, Yes oriented to place, Yes oriented to time and Yes Orientation impaired MENINGEAL SIGNS: Yes no meningeal signs CRANIAL NERVES: Yes CN II (optic), Yes CN IV (trochlear), Yes CN V (trigeminal), Yes CN (abducens) and Yes CN VII (facial) COORDINATION/BALANCE: [id number] test normal SPEECH: speech normal MOTOR EXAM: 5/5 motor strength present throughout COORDINATION: [id number] test normal PUPIL EXAM: Normal pupillary reactivity/response: right, left and bilateral Psych: COMMON NORMALS: mental status grossly normal Data 10/05/22 22:00 10/05/22 22:00 A&P Assessment and plan (1) Cranial nerve III palsy, partial, left: - I deviated down and out, with ptosis -Pupillary sparing -Etiology concerning for possible giant cell arteritis -Other possibilities include ischemic 3rd nerve palsy, likely diabetic related -MRI orbits IMPRESSION: ?Negative MRI orbits. No masses or abnormal enhancement. No abnormality noted along the course of the 3rd cranial nerve. MRA 1.? No [place] of [place] aneurysm. 2.? No vascular malformation identified. 3.? Very mild atherosclerosis distal carotid arteries and the proximal middle cerebral arteries. MRI brain 1.? Quality is compromised by motion artifact. 2.? No acute infarct. 3.? Moderate small vessel chronic ischemic disease and remote RIGHT thalamic lacunar infarct. 4.? RIGHT sphenoid sinus disease. Plan -N.p.o. midnight, for temporal artery biopsy tomorrow -Continue high-dose steroids -Monitor blood sugars closely -Continue aspirin, statin, -Monitor mentation -Neurologic exam -Follow antibody tests -HELEN, tick panel Spoke to neurology, spoke to ophthalmology, spoke to general surgery spoke to nursing staff spoke to patient spoke to family Attestations Medical Necessity Statement*: Patient requires hospitalization due to cranial nerve third palsy, blurry vision, ptosis, eye deviated down and out Coding Level of Care Code 82729 High Time for a total of 70 minutes, includes reviewing past or interval history, examining/interviewing patient, placing orders, counseling patient/family/other support, updating patient/family/other support, discussing plan of care with staff, communicating with other healthcare providers, documenting encounter and coordinating care Diagnoses Cranial nerve III palsy, partial, left H49.02
[2022-10-06] MEDS: atorvastatin 40 mg Tablet 80 MG PO (20:18)
[2022-10-06 20:59] LABS: Glucose Point of Care 251 mg/dL (70-110)
[2022-10-07] VITALS (19 sets, daily range): BP systolic 103–145; BP diastolic 52–81; PULSE 55–74; RESP 12–18; TEMP 36–37; O2SAT 92–96
[2022-10-07] MEDS: heparin 5,000 unit/mL INJ 1 mL 5000 UNIT SUBCUT (00:12)
[2022-10-07 02:12] LABS: Glucose Point of Care 175 mg/dL (70-110)
[2022-10-07 04:31] LABS: Basophils % 0.1 %; Hematocrit 48.2 % (42.0-52.0); Hemoglobin 15.9 g/dL (11.7-16.6); Lymphocytes # 0.7 10^3/uL (0.8-4.8); Lymphocytes % 7.5 %; Mean Corpuscular Hemoglobin 28.5 pg (28.0-34.0); Mean Corpuscular Volume 86.4 fl (80-94); Mean Platelet Volume 10.9 fL (7.4-10.4); Monocytes # 0.2 10^3/uL (0.2-0.9); Monocytes % 2.5 %; Neutrophils # 8.54 10^3/uL (1.8-7.7); Neutrophils % 89.6 %; Nucleated Red Blood Cells % 0 %; Platelet Count 210 10^3/cmm (130-400); Red Blood Count 5.58 10^6/uL (4.1-5.3); Red Cell Distribution Width 13.6 % (12.1-15.1); White Blood Count 9.5 10^3/uL (4.0-10.0)
[2022-10-07 04:46] LABS: Alanine Aminotransferase 11 U/L (0-41); Albumin Level 3.7 g/dL (3.5-5.2); Alkaline Phosphatase 66 U/L (40-130); Anion Gap 17.3 (5-19); Aspartate Amino Transferase 12 U/L (0-40); Blood Urea Nitrogen 20 mg/dL (8-23); Calcium 8.6 mg/dL (8.5-10.5); Carbon Dioxide 21 mmol/L (22-29); Chloride 101 mmol/L (98-107); Globulin 2.9 g/dL (1.3-4.6); Glucose 211 mg/dL (65-115); Magnesium 2.1 mg/dL (1.7-2.3); Osmolality Calculated 289 mOsm/kg (285-295); Potassium 4.3 mmol/L (3.5-5.1); Sodium 135 mmol/L (136-145); Total Bilirubin 0.4 mg/dL (0.15-1.2); Total Protein 6.6 g/dL (6.6-8.7)
[2022-10-07 07:57] LABS: Glucose Point of Care 196 mg/dL (70-110)
[2022-10-07] MEDS: insulin lispro 100 unit/1 mL SUBCUT ×3 (08:00→21:56)
[2022-10-07] MEDS: amlodipine 5 mg Tablet PO (08:00)
[2022-10-07] MEDS: pantoprazole DR 40 mg Tablet PO ×2 (08:00→17:48)
[2022-10-07] MEDS: sodium chloride 0.9% 1,000 ML 30 ML IV (09:22)
--- NOTE | 2022-10-07 09:35 | P.ANESASSM_ITS ---
Pre-Anesthetic Assessment Height/Weight: Height 1.78 m Weight 86.636 kg Temp Pulse Resp BP Pulse Ox O2 Del Method 97.5 F L 63 18 139/69 95 Room Air 10/07/22 09:20 10/07/22 09:20 10/07/22 09:20 10/07/22 09:20 10/07/22 09:20 10/07/22 09:20 Operation Date: 10/07/22 10:20 Proposed Procedures p Temporal Artery Biopsy(Bilateral) - Irvin Manuel MD Familial anesthetic complications: none Was Beta Tali taken within 24 hours: N/A Was Clonidine taken within 24 hours: N/A Social No alcohol and No tobacco Exam alert, oriented x 3, clear to auscultation bilaterally and regular rate & rhythm Airway Submandibular: within normal limits Cervical ROM: within normal limits Mallampati: Class II Dentition: other (missing some) CV/HEM Hypertension Metabolic Diabetes Mellitus Neuropsych Cerebrovascular Accident and Deficit (left eye) Anesthetic Plan ASA status: 3 Anesthesia: Choice Medications/Allergies Home Medications Medication Instructions Recorded Confirmed Last Taken Type albuterol 90 mcg/actuation aerosol 180 mcg inhalation Q4H PRN cough 10/06/22 10/06/22 Unknown History inhaler or wheezing albuterol sulfate 2.5 mg/3 mL 2.5 mg inhalation QID PRN cough or 10/06/22 10/06/22 Unknown History (0.083 %) solution for nebulization wheezing amlodipine 5 mg tablet 5 mg PO DAILY 10/06/22 10/06/22 Unknown History antiox.multivit 10-[id number] 280 1 cap PO DAILY 10/06/22 10/06/22 Unknown History mg-lutein 10 mg-zeaxanthin 2 mg capsule (I-Caps) aspirin 81 mg tablet,delayed 81 mg PO DAILY 10/06/22 10/06/22 Unknown History release atorvastatin 10 mg tablet 10 mg PO QPM 10/06/22 10/06/22 Unknown History cholecalciferol (vitamin D3) 50 50 mcg PO DAILY 10/06/22 10/06/22 Unknown History mcg (2,000 unit) capsule (Vitamin D3) cinnamon bark 500 mg capsule 500 mg PO DAILY 10/06/22 10/06/22 Unknown History (Cinnamon) dapagliflozin 10 mg tablet 10 mg PO DAILY 10/06/22 10/06/22 Unknown History (Farxiga) diclofenac sodium 1 % topical gel 2 g topical QID 10/06/22 10/06/22 Unknown H istory fluticasone fur. 100 mcg-umeclid 1 inh inhalation DAILY 10/06/22 10/06/22 Unknown History 62.5 mcg-vilant 25 mcg inhalat.powder (Trelegy Ellipta) garlic 200 mg tablet 200 mg PO DAILY 10/06/22 10/06/22 Unknown History irbesartan 300 mg tablet 300 mg PO DAILY 10/06/22 10/06/22 Unknown History metformin 1,000 mg tablet 1,000 mg PO BIDWMEAL 10/06/22 10/06/22 Unknown History multivitamin 1 tab PO DAILY 10/06/22 10/06/22 Unknown History omega-3 fatty acids-vitamin E 1 cap PO DAILY 10/06/22 10/06/22 Unknown History 1,000 mg capsule vitamin E 50 unit capsule 50 unit PO DAILY 10/06/22 10/06/22 Unknown History zinc 50 mg tablet 50 mg PO DAILY 10/06/22 10/06/22 Unknown History Allergies Allergy/AdvReac Type Severity Reaction Status Date / Time No Known Allergies Allergy Verified 10/05/22 19:06 Current Medications Generic Name Dose Route Start Last Admin Trade Name Freq PRN Reason Stop Dose Admin Acetaminophen 650 mg 10/06/22 00:57 10/06/22 09:09 Acetaminophen 325 Mg Tablet PO 650 mg Q6H PRN Administration Mild/Mod Pain Or Temp >/= 101 Amlodipine Besylate 5 mg 10/06/22 09:00 10/07/22 08:00 Amlodipine 5 Mg Tablet PO 5 mg DAILY POWER Administration Aspirin 81 mg 10/06/22 09:00 10/07/22 07:57 Aspirin 81 Mg Ec Tablet PO Not Given DAILY POWER Atorvastatin Calcium 80 mg 10/06/22 21:00 10/06/22 20:18 Atorvastatin 40 Mg Tablet PO 80 mg BEDTIME POWER Administration Heparin Sodium (Porcine) 5,000 unit 10/06/22 01:00 10/07/22 00:12 Heparin 5,000 Unit/Ml Inj 1 Ml SUBCUT 5,000 unit Q12H POWER Administration Sodium Chloride 1,000 mls @ 50 mls/hr 10/06/22 01:00 10/06/22 20:18 Sodium Chloride 0.9% IV 75 mls/hr .Q20H POWER Administration Methylprednisolone Sodium 258 mls @ 258 mls/hr 10/06/22 11:00 10/06/22 14:12 Succinate 1,000 mg/ Sodium IV Infused Chloride Q24H POWER Infusion Sodium Chloride 1,000 mls @ 30 mls/hr 10/07/22 09:30 10/07/22 09:22 Sodium Chloride 0.9% IV 10/08/22 09:29 30 mls/hr .Q24H POWER Administration Ibuprofen 400 mg 10/06/22 00:57 10/06/22 06:34 Ibuprofen 200 Mg Tablet PO 400 mg Q8H PRN Administration mild/mod pain or temp >/= 101 Insulin Human Lispro 0 unit 10/06/22 08:00 10/07/22 08:00 Insulin Lispro 100 Unit/1 Ml SUBCUT 6 unit WM&BEDTIME POWER Administration Protocol Pantoprazole Sodium 40 mg 10/06/22 09:00 10/07/22 08:[address] 40 Mg Tablet PO 40 mg DAILY POWER Administration Data Anesthesia 10/07/22 04:02 10/07/22 04:02 Short CBC 10/05/22 10/07/22 Range/Units 22:00 04:02 WBC 9.0 9.5 (4.0-10.0) 10^3/uL Hgb 16.8 H 15.9 (11.7-16.6) g/dL Hct 52.5 H 48.2 (42.0-52.0) % MCV 88.7 86.4 (80-94) fl Plt Count 207 210 (130-400) 10^3/cmm Neut % (Auto) 67.3 89.6 % Neut # (Auto) 6.02 8.54 H (1.8-7.7) 10^3/uL BMP 10/05/22 10/07/22 22:00 04:02 Sodium 137 135 L Potassium 4.7 4.3 Chloride 98 101 Carbon Dioxide 26 21 L BUN 13 20 Creatinine 0.8 0.7 Glucose 262 H 211 H Calcium 9.7 8.6 Liver Function 10/07/22 Range/Units 04:02 Total Bilirubin 0.4 (0.15-1.2) mg/dL AST 12 (0-40) U/L ALT 11 (0-41) U/L Alkaline Phosphatase 66 (40-130) U/L Albumin 3.7 (3.5-5.2) g/dL Urine 10/05/22 Range/Units 22:00 Urine Color Light yellow (Yellow) Urine Appearance Clear (CLEAR) Urine pH 7 (5-7) Ur Specific [place] 1.005 (1.005-1.030) Urine Protein Neg (Negative) Urine Glucose (UA) 4+ H (Normal) Urine Ketones 1+ H (Negative) Urine Nitrate Negative (Negative) Urine Bilirubin Neg (Negative) Ur Leukocyte Esterase Negative (Negative) Coags 10/06/22 10/06/22 10:17 10:17 ESR 14 H C-Reactive Protein 4.7 Cardiac Studies: Echocardiogram 10/06/22
[2022-10-07] MEDS: ceFAZolin 1,000 MG in sodium chloride 0.9% (plus) 50 ML 100 MG IV (10:39)
[2022-10-07] MEDS: neomycin-poly-bacitracin oint 28 gm 1 APPLIC TOPICAL (11:42)
[2022-10-07] MEDS: lidocaine-epi 1% 20 mL INJ INJECTION (11:48)
[2022-10-07 11:50] LABS: COMPLEMENT COMPONENT C3C 116 mg/dL (82-185); COMPLEMENT COMPONENT C4C 22 mg/dL (15-53)
[2022-10-07 13:35] LABS: CENTROMERE B ANTIBODY <1.0 NEG AI (<1.0 NEG); JO-1 ANTIBODY <1.0 NEG AI (<1.0 NEG); RNP ANTIBODY <1.0 NEG AI (<1.0 NEG); SCL-70 ANTIBODY <1.0 NEG AI (<1.0 NEG); SJOGREN'S ANTIBODY (SS-A) <1.0 NEG AI (<1.0 NEG); SM ANTIBODY <1.0 NEG AI (<1.0 NEG); SS-B <1.0 NEG AI (<1.0 NEG)
--- NOTE | 2022-10-07 13:45 | ANE.PACU2 ---
Inpatient post-anesthesia follow up: Airway intact: Yes Vital signs: Temperature 97 F Pulse Rate 61 Respiratory Rate 16 Blood Pressure 123/81 Pulse Oximetry 95 Oxygen Delivery Me thod Room Air Oxygen Flow Rate Fraction of Inspir ed Oxygen Hydration adequate: Yes Nausea and vomiting: No Pain level: 2 Mental status: Baseline
[2022-10-07] MEDS: methylPREDNISolone sod succ 1,000 MG in sodium chloride 0.9% 250 ML 258 MG IV (14:00)
[2022-10-07] MEDS: insulin glargine 100 units/1 mL 5 UNIT SUBCUT ×2 (14:01→21:55)
--- NOTE | 2022-10-07 15:34 | PM.PN ---
Subjective Subjective: Patient was seen this morning, and postop recovery, he has had his temporal artery biopsy, he does report the blurry vision in his left eye has improved, his vision has improved from the left eye, I remain deviated down and out, continues to have trouble with immediately deviating the left eye, his ptosis has improved also, no fevers, no chills, jaw pain is also improved, Vitals/I&O/Wt Last Vital Signs Temp 97 F L 10/07/22 12:27 Pulse 69 10/07/22 14:00 Resp 16 10/07/22 14:00 BP 123/81 10/07/22 14:00 Pulse Ox 95 10/07/22 12:41 O2 Del Method Room Air 10/07/22 12:41 10/07/22 10/07/22 10/07/22 06:59 14:59 22:59 Intake Total 1050 / 1050 183 / 1233 Output Total 550 / 550 2 / 2 Balance -550 / 1188.00 1048 / 1048 183 / 1231 Weight last 48 hrs Weight 86.636 kg Physical Exam Const: COMMON NORMALS: no acute distress and patient oriented x3 Eye: OTHER: Bilateral pupils, equal round reactive to light, no significant Ascor he is seen Left eye deviated down and out Decreased medial abduction of the left eye Mild ptosis Temporal artery biopsy site with bandage on top Resp: COMMON NORMALS: normal respiratory effort, No retractions, No use of accessory muscles and clear to auscultation bilaterally AUSCULTATION: clear to auscultation bilaterally Cardio: COMMON NORMALS: regular rate, regular rhythm, S1 normal heart sound present and S2 normal heart sound present RATE: regular rate RHYTHM: regular rhythm HEART SOUNDS: S1 normal heart sound present and S2 normal heart sound present GI: COMMON NORMALS: Normal to inspection, nondistended, normoactive bowel sounds present and non-tender Extremity: COMMON NORMALS: no pedal edema Neuro: COMMON NORMALS: patient oriented x3 Psych: COMMON NORMALS: mental status grossly normal Data 10/07/22 04:02 10/07/22 04:02 A&P Assessment and plan (1) Cranial nerve III palsy, partial, left: - I deviated down and out, with ptosis -Pupillary sparing -Etiology concerning for possible giant cell arteritis -Other possibilities include ischemic 3rd nerve palsy, likely diabetic related -MRI orbits IMPRESSION: ?Negative MRI orbits. No masses or abnormal enhancement. No abnormality noted along the course of the 3rd cranial nerve. MRA 1.? No [place] aneurysm. 2.? No vascular malformation identified. 3.? Very mild atherosclerosis distal carotid arteries and the proximal middle cerebral arteries. MRI brain 1.? Quality is compromised by motion artifact. 2.? No acute infarct. 3.? Moderate small vessel chronic ischemic disease and remote RIGHT thalamic lacunar infarct. 4.? RIGHT sphenoid sinus disease. Plan -Has undergone temporal artery biopsy -Continue high-dose steroids for at least 3 days, then taper thereafter -Follow temporal artery biopsy -Monitor blood sugars closely, on moderate dose sliding scale, Lantus 5 units twice daily -Continue aspirin, statin, -Monitor mentation -Neurologic exam -Follow antibody tests -HELEN, tick panel, Anti-MuSK antibodies Plan for today, continue high-dose steroids, follow-up after temporal artery biopsy results, continue aspirin, statin, follow antibodies, follow sugar Attestations Medical Necessity Statement*: Patient requires hospitalization for cranial nerve third palsy, concern for giant cell arteritis versus diabetic ischemia 3rd nerve palsy, requiring high-dose steroids, blood sugar monitoring Diagnoses Cranial nerve III palsy, partial, left H49.02
[2022-10-07 15:35] LABS: Lyme AB Screen <0.90 index
[2022-10-07] MEDS: sodium chloride 0.9% 1,000 ML 75 ML IV (15:43)
[2022-10-07 16:12] LABS: Glucose Point of Care 250 mg/dL (70-110)
--- NOTE | 2022-10-07 17:14 | PM.OP ---
Operative Report Date of procedure: October 07, 2022 Pre-op diagnosis: Headache and visual disturbance and rule out temporal arteritis Post-op diagnosis: same Post-op findings: grossly normal temporal arteries Procedure done: bilateral temporal artery biopsies Specimens removed/disposition: bilateral temporal arteries Surgeon: Anupam rios MD Anesthesia: MAC and Local Complications: none Brief History: Patient with left sided headache and left visual disturbance. Old lacanur thalamic cva seen and no AVM. He needs temporal arteritis ruled out. He understands risks, benefits and alternatives to procedure including, bleeding, infection, cardiopulmonary problems, more surgery, poor cosmesis. Procedure: After adequate prepping and draping bilateral temporal arteries, 1% lidocaine with epi was instilled over left temporal artery and incision was made over artery. Dissection was made deep to artery and was hemoclipped distally and dissected proximally 1-2 cm then clipped proximally. Specimen sent to path in formalin per their request and not fresh. Bleeding was conrolled with cautery. Wound closed in layers with subcuticular 5-0 vicryl and then dung. Right side was done in similar fashion and closed in similar manner. Wounds were asepitically dressed. Path states they will try to get results out tomorrow.
[2022-10-07 17:41] LABS: Glucose Point of Care 356 mg/dL (70-110)
[2022-10-07] MEDS: atorvastatin 40 mg Tablet 80 MG PO (20:32)
[2022-10-07 20:58] LABS: Glucose Point of Care 371 mg/dL (70-110)
[2022-10-08] VITALS: BP 118/65; PULSE 58; RESP 18; TEMP 36.4; O2SAT 94
[2022-10-08 00:35] LABS: Glucose Point of Care 250 mg/dL (70-110)
[2022-10-08] MEDS: heparin 5,000 unit/mL INJ 1 mL 5000 UNIT SUBCUT ×2 (01:26→12:55)
[2022-10-08 04:56] LABS: Basophils % 0.1 %; Hemoglobin 15.1 g/dL (11.7-16.6); Lymphocytes # 0.7 10^3/uL (0.8-4.8); Lymphocytes % 5.1 %; Mean Corpuscular HGB Conc 32.1 g/dL (30.0-36.0); Mean Corpuscular Hemoglobin 27.9 pg (28.0-34.0); Mean Corpuscular Volume 86.9 fl (80-94); Mean Platelet Volume 11.5 fL (7.4-10.4); Monocytes # 0.4 10^3/uL (0.2-0.9); Monocytes % 3.1 %; Neutrophils # 11.58 10^3/uL (1.8-7.7); Neutrophils % 91.2 %; Nucleated Red Blood Cells % 0 %; Platelet Count 223 10^3/cmm (130-400); Red Blood Count 5.41 10^6/uL (4.1-5.3); Red Cell Distribution Width 13.9 % (12.1-15.1); White Blood Count 12.7 10^3/uL (4.0-10.0)
[2022-10-08 05:13] VITALS: BP 137/73; PULSE 73; RESP 16; TEMP 37; O2SAT 96
[2022-10-08 05:13] LABS: Glucose Point of Care 234 mg/dL (70-110)
[2022-10-08 05:25] LABS: Anion Gap 14.4 (5-19); Blood Urea Nitrogen 24 mg/dL (8-23); Calcium 8.7 mg/dL (8.5-10.5); Carbon Dioxide 22 mmol/L (22-29); Chloride 104 mmol/L (98-107); Glucose 229 mg/dL (65-115); Osmolality Calculated 293 mOsm/kg (285-295); Potassium 4.4 mmol/L (3.5-5.1); Sodium 136 mmol/L (136-145)
[2022-10-08 08:06] VITALS: BP 148/75; PULSE 77; RESP 18; TEMP 36.6; O2SAT 94
[2022-10-08] MEDS: insulin lispro 100 unit/1 mL SUBCUT ×4 (09:09→21:20)
[2022-10-08] MEDS: amlodipine 5 mg Tablet PO (09:09)
[2022-10-08] MEDS: aspirin 81 mg EC Tablet PO (09:09)
[2022-10-08] MEDS: pantoprazole DR 40 mg Tablet PO ×2 (09:09→17:26)
[2022-10-08] MEDS: insulin glargine 100 units/1 mL 5 UNIT SUBCUT ×2 (09:10→21:20)
[2022-10-08 09:40] LABS: Glucose Point of Care 286 mg/dL (70-110)
[2022-10-08 11:36] VITALS: BP 147/77; PULSE 57; RESP 16; TEMP 36.6; O2SAT 94
[2022-10-08 12:38] LABS: Glucose Point of Care 317 mg/dL (70-110)
[2022-10-08] MEDS: methylPREDNISolone sod succ 1,000 MG in sodium chloride 0.9% 250 ML 258 MG IV (13:11)
--- NOTE | 2022-10-08 14:40 | P.PN_ITS ---
Subjective Subjective: Patient was seen this morning, he tells me that his temporal tenderness his neck pain, jaw pain, his vision has significantly resolved, he reports ptosis, improved ability to medially deviate left eye, no nausea, no vomiting, no headache Vitals/I&O/Wt Last Vital Signs Temp 97.8 F 10/08/22 11:36 Pulse 57 L 10/08/22 11:36 Resp 16 10/08/22 11:36 BP 147/77 10/08/22 11:36 Pulse Ox 94 10/08/22 11:36 O2 Del Method Room Air 10/08/22 11:36 10/07/22 10/08/22 10/08/22 22:59 06:59 14:59 Intake Total 1274 / 2324 240 / 2564 618 / 618 Balance 1274 / 2322 240 / 2562 618 / 618 Physical Exam Const: COMMON NORMALS: no acute distress and patient oriented x3 HENMT: OTHER: Temporal artery site looks clean and dry Resp: COMMON NORMALS: normal respiratory effort, No retractions, No use of accessory muscles and clear to auscultation bilaterally AUSCULTATION: clear to auscultation bilaterally Cardio: COMMON NORMALS: regular rate, regular rhythm, S1 normal heart sound present and S2 normal heart sound present RATE: regular rate RHYTHM: regular rhythm HEART SOUNDS: S1 normal heart sound present and S2 normal heart sound present GI: COMMON NORMALS: Normal to inspection, nondistended, normoactive bowel sounds present and non-tender Extremity: COMMON NORMALS: no pedal edema Neuro: COMMON NORMALS: patient oriented x3 Psych: COMMON NORMALS: mental status grossly normal Data 10/08/22 03:20 10/08/22 03:20 A&P Assessment and plan (1) Temporal giant cell arteritis: (2) Cranial nerve III palsy, partial, left: - I deviated down and out, with ptosis -Pupillary sparing -Secondary to temporal arteritis -Other possibilities include ischemic 3rd nerve palsy, likely diabetic related -MRI orbits IMPRESSION: ?Negative MRI orbits. No masses or abnormal enhancement. No abnormality noted along the course of the 3rd cranial nerve. MRA 1.? No [place] aneurysm. 2.? No vascular malformation identified. 3.? Very mild atherosclerosis distal carotid arteries and the proximal middle cerebral arteries. MRI brain 1.? Quality is compromised by motion artifact. 2.? No acute infarct. 3.? Moderate small vessel chronic ischemic disease and remote RIGHT thalamic lacunar infarct. 4.? RIGHT sphenoid sinus disease. Plan -Has undergone temporal artery biopsy -Continue high-dose steroids for at least 3 days, then taper thereafter -Follow temporal artery biopsy results -Monitor blood sugars closely, on moderate dose sliding scale, Lantus 5 units twice daily -Continue aspirin, statin, -Monitor mentation -Neurologic exam -Follow antibody tests -HELEN, tick panel, Anti-MuSK antibodies Plan for today, continue high-dose steroids, follow-up after temporal artery biopsy results, continue aspirin, statin, follow antibodies, follow sugar, likely discharge in the next 24 hours Attestations Medical Necessity Statement*: Patient requires hospitalization for temporal arteritis Diagnoses Temporal giant cell arteritis M31.6 Cranial nerve III palsy, partial, left H49.02
[2022-10-08 16:27] VITALS: BP 139/81; PULSE 62; RESP 16; TEMP 36.7; O2SAT 92
--- NOTE | 2022-10-08 16:54 | PM.PN ---
Subjective Subjective: No complaints Vitals/I&O/Wt Last Vital Signs Temp 98.1 F 10/08/22 16:27 Pulse 62 10/08/22 16:27 Resp 16 10/08/22 16:27 BP 139/81 10/08/22 16:27 Pulse Ox 92 10/08/22 16:27 O2 Del Method Room Air 10/08/22 16:27 10/08/22 10/08/22 10/08/22 06:59 14:59 22:59 Intake Total 240 / 2564 618 / 618 Balance 240 / 2562 618 / 618 Physical Exam Narrative: Patient is a well developed well nourished and in NAD and is afebrile with vitals stable and is answering questions appropriately with a normal affect and is alert and oriented x3 HEENT: normocephalic with normal external ears and nonicteric, oral mucosa moist and dentition normal for age, trachea midline with no large masses visualized Heart: RRR, no gallops murmurs or rubs, normal PMI with no thrills Lungs: normal excursions, no loud audible wheezing, no subcutaneous emphysema Abdomen: nondistended, no gross hepatosplenomegaly, no masses, no rigidity or rebound, no loud borborygmi Neuro: nonfocal, MARIN, grossly normal sensation Musculoskeletal: good muscle tone, no fasciculations, normal gait Skin: pink warm and dry with no rashes or ecchymosis Vascular: good radial pulses, no ulceration, less than 2 second capillary refill in hand : deferred Data 10/08/22 03:20 10/08/22 03:20 A&P Assessment and plan (1) Temporal giant cell arteritis: Patient with path results of temporal artery biopsy showing both sides having inflammation. Wounds are clean and dry. I will send patient home with PPI to protect stomach from steroids given. RTC 5 days to remove dung. May shower and cover wounds with antibiotic ointment bid as dressing. Attestations Medical Necessity Statement*: see hospitalist note Coding Level of Care Code Acute Code for Chg Fwd Diagnoses Temporal giant cell arteritis M31.6
[2022-10-08 17:01] LABS: Glucose Point of Care 242 mg/dL (70-110)
[2022-10-08 20:00] VITALS: BP 139/67; PULSE 73; RESP 17; TEMP 36.2; O2SAT 93
[2022-10-08] MEDS: atorvastatin 40 mg Tablet 80 MG PO (21:20)
[2022-10-09] VITALS: BP 149/80; PULSE 60; RESP 17; TEMP 36.2; O2SAT 93
[2022-10-09 00:55] LABS: Glucose Point of Care 301 mg/dL (70-110)
[2022-10-09 00:55] LABS: Glucose Point of Care 493 mg/dL (70-110)
[2022-10-09] MEDS: heparin 5,000 unit/mL INJ 1 mL 5000 UNIT SUBCUT (01:56)
[2022-10-09 04:00] VITALS: BP 137/78; PULSE 57; RESP 16; TEMP 36.2; O2SAT 92
[2022-10-09 04:30] LABS: Glucose Point of Care 250 mg/dL (70-110)
[2022-10-09 05:59] LABS: Basophils % 0.1 %; Hemoglobin 14.8 g/dL (11.7-16.6); Lymphocytes # 0.7 10^3/uL (0.8-4.8); Lymphocytes % 5.4 %; Mean Corpuscular HGB Conc 32.2 g/dL (30.0-36.0); Mean Corpuscular Hemoglobin 27.8 pg (28.0-34.0); Mean Corpuscular Volume 86.5 fl (80-94); Mean Platelet Volume 11.5 fL (7.4-10.4); Monocytes # 0.7 10^3/uL (0.2-0.9); Monocytes % 5.3 %; Neutrophils % 88.1 %; Nucleated Red Blood Cells % 0 %; Platelet Count 233 10^3/cmm (130-400); Red Blood Count 5.32 10^6/uL (4.1-5.3); Red Cell Distribution Width 13.8 % (12.1-15.1)
[2022-10-09 06:28] LABS: Anion Gap 12.1 (5-19); Blood Urea Nitrogen 23 mg/dL (8-23); Calcium 8.8 mg/dL (8.5-10.5); Carbon Dioxide 26 mmol/L (22-29); Chloride 98 mmol/L (98-107); Glucose 259 mg/dL (65-115); Osmolality Calculated 287 mOsm/kg (285-295); Potassium 4.1 mmol/L (3.5-5.1); Sodium 132 mmol/L (136-145)
[2022-10-09 06:39] VITALS: PULSE 51
[2022-10-09 07:39] LABS: Glucose Point of Care 228 mg/dL (70-110)
[2022-10-09 08:00] VITALS: BP 142/73; PULSE 62; RESP 20; TEMP 36.1; O2SAT 93
[2022-10-09] MEDS: aspirin 81 mg EC Tablet PO (08:19)
[2022-10-09] MEDS: pantoprazole DR 40 mg Tablet PO (08:19)
[2022-10-09] MEDS: amlodipine 5 mg Tablet PO (08:19)
[2022-10-09] MEDS: insulin lispro 100 unit/1 mL SUBCUT ×2 (08:20→12:20)
[2022-10-09] MEDS: insulin glargine 100 units/1 mL 5 UNIT SUBCUT (08:20)
[2022-10-09 11:02] LABS: Glucose Point of Care 292 mg/dL (70-110)
[2022-10-09 11:37] VITALS: BP 135/73; PULSE 59; RESP 20; TEMP 36.6; O2SAT 94
--- NOTE | 2022-10-09 12:03 | P.DS_ITS ---
Discharge Providers Date of Admission: 10/07/22 12:55 Date of Discharge: October 09, 2022 Attending Provider at Admission: Rima Borrego MD Attending Provider at Discharge: Regino Cm MD Diagnoses at Discharge Discharge Diagnosis (1) Temporal giant cell arteritis: Status: Acute Reason for Visit Reason for Visit: stroke like [facility] Hospital Course Hospital Course akhil Easton is a 72 year old male with past medical history of diabetes, hypertension, hyperlipidemia who presented to the hospital today with complaint of lazy eye .? He states that his eye has been going outward and not tracking as it showed.? His left eye is doing what ever it wants to do and he is unable to control it.? He is also been having some pain in the left eye socket and back of head and he has been taking Tylenol for it.? 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 When he covers his left eye he is able to do okay and the pain gets better however when he tries to see out of both eyes he is experiencing double vision especially when going up and down stairs.? He says the symptoms for started about 5 days ago.? And since he has not gotten better he decided to come to the ER today.? 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 Denies having a history of stroke however CT head in the ER today showed a remote old lacunar infarct.? I am not sure if patient was aware of this.? He says he went to the dentist 5 days ago and had a wisdom tooth extraction done with another tooth that was right in front of it.? He says there was some complication and he had to spend 3 hours and oral surgery.? He believes since then his symptoms have started.? Denies slurred speech denies any weakness in the body or any other focal neurological symptoms at this time.? Denies being nauseous.? Denies seeing halos around his eyes.? Eye has not been red and is not fixed and hard.? Denies a history of glaucoma or any other ophthalmologic issues.? He says also 5 days ago for about 2 to 3 hours he had a lot of gas and had some chest pain associated with it however after gas was relieved and he had to sit up to try to burp he felt better.? He has had a stress test before but that was few years ago and it was normal at the time.? He says he takes a lot of vitamins such as vitamin C vitamin D zinc cinnamon and men's vitamins.? He is quite well versed with his history.? Daughter is present at bedside. ED course: CT head showed old lacunar infarct involving the right thalamus on arrival blood pressure 165/75 respirate 16, pulse 60, temperature 98.2, saturating 97% on room air.? WBC 9.0, hemoglobin 16.8, platelets 207, glucose 4+ urine, ketones 1+ in urine.? Negative UA otherwise.? Hemoglobin 16.8.? ER examined the patient and noted that left eye will not cross midline to gaze to the right.? No proptosis PERRLA.? Intraocular pressures were checked.? Left 12, right 13. Patient was admitted to [facility] for cranial nerve III palsy, his left eye was deviated down and out, pupils were responsive to light, did have ptosis, as a was concerns for temporal arteritis he was started on high-dose steroids, underwent MRI imaging no significant vascular aneurysm, no significant space-occupying lesion, ESR is 14, given his jaw pain and left temporal tenderness, underwent temporal artery biopsy, which showed pathologic evidence of temporal arteritis. Patient completed 3 days of high-dose steroids as inpatient, required blood sugar monitoring, his blurry vision resolved, he has temporal tenderness, jaw pain resolved, ptosis also significantly improved, still to some degree he is left eye is deviated down and out but improved, still has some reduced ability to deviate left eye medially. Will be discharged on a slow prednisone taper. I have discharged him on 60 mg for 2 weeks followed by 50 mg for 2 weeks followed by 40 mg for 2 weeks, then based upon his sed rate and CRP further de-escalation based upon rheumatology's input. But generally would recommend 5 mg reduction every 2 weeks, also I would have him follow-up with rheumatology for consideration of tocilizumab. Given his diabetes, discharged on insulin therapy as of below, follow-up with rheumatology and primary care as as outpatient. 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 In addition I have ordered HELEN, antimusk, acetylcholine antibodies to follow up as outpatient. Discharged on aspirin, statin with a close follow-up with primary care provider as outpatient. Follow-up with Dr. Clark as outpatient. Echocardiogram did show left atrial dilatation, follow-up with cardiology as outpatient. HISTOPATHOLOGY REPORT Accession No. [id number] ? Status: Signed Out Final Diagnosis A.? Soft tissue, left temporal artery , excision: ? Microscopic features consistent with temporal arteritis. ? No malignancy identified. B.? Soft tissue, right temporal artery , excision: ? Microscopic features consistent with temporal arteritis. ? No malignancy identified. ?? Tissues ?A. Temporal Artery - Left temporal artery ?B. Temporal Artery - Right temoral artery Gross Description The specimens are submitted in 2 formalin filled containers labeled the patient's name and MRN number. Specimen A, left temporal artery consists of a 1.4 cm hess-white vascular tissue fragment, serially sectioned by the alignment technician and submitted entirely and embedded in cassette A1. Specimen B, right temporal artery consists of a 1 cm hess-white vascular tissue fragment, serially sectioned by alignment technician and submitted entirely in embedded in cassette B1. Microscopic Description Keep wound dry and clean. May shower. Apply antibiotic ointment as dressing bid. Wash off old antibiotic ointment. RTC in 5 days to remove dung and to go over path results. Call for fever over 101F, redness, increased pain and warmth and drainage. -For your giant cell arteritis -I have discharged you on prednisone treatment -A very slow taper -60 mg for 2 weeks, followed by 50 mg for 2 weeks, followed by 40 mg for 2 weeks, then decrease by 5 mg every 2 weeks -However this taper is going to dependent on what your ESR and your CRP are -Your ESR is 14, your CRP is 5 -I am going to leave up the tapering of your prednisone based on rheumatology's recommendation, and also can have you follow-up with rheumatology for consideration of tocilizumab -Monitor your blood sugars very closely -Please see your primary care provider -Take Lantus 8 units every 12 hours -As your prednisone decreases your insulin requirements might decrease monitor very closely for hypoglycemia -I discharged you on a NovoLog insulin sliding scale --Please monitor your blood sugars closely -Monitor your blood sugars 3 times daily as after meals -Please record your blood sugars, and a blood sugar log -For your NovoLog -Please inject blood sugar after meals based on sliding scale provided -Do not inject insulin if you do not eat as hypoglycemia kills -This is a NovoLog sliding scale -Insulin sliding ?fingerstick? Insulin ?141-180?0 units/sq 181-220?2 units/sq ?221-260?4 units/sq ?261-300 6 units/sq ?301-350?8 units/sq ?351-400 10 units/sq ?401-450?12 units/sq >450? 14units/sq -If your blood sugar is greater than 500 go to the emergency room -If your blood sugar is less than 60 or at anytime you feel lightheaded or dizzy or diaphoretic or have chest palpitations check your blood sugar, and eat a hard candy or drink orange juice and go immediately to the emergency room -Remember hypoglycemia kills, so if his blood sugar is less than 60 we have to increase it by taking in a sugary meal such as a hard candy or orange juice and go to the emergency room -If you have any questions please call us where here to help -Please follow-up with Dr. Clark - I am have you follow-up with Dr. Cuevas, for cranial nerve III palsy -You do have evidence of left atrial dilatation and would have you follow-up with cardiology Physical Exam Const: COMMON NORMALS: no acute distress and patient oriented x3 Resp: COMMON NORMALS: normal respiratory effort, No retractions, No use of accessory muscles and clear to auscultation bilaterally AUSCULTATION: clear to auscultation bilaterally Cardio: COMMON NORMALS: regular rate, regular rhythm, S1 normal heart sound present and S2 normal heart sound present RATE: regular rate RHYTHM: regul ar rhythm HEART SOUNDS: S1 normal heart sound present and S2 normal heart sound present GI: COMMON NORMALS: Normal to inspection, nondistended, normoactive bowel sounds present and non-tender Extremity: COMMON NORMALS: no pedal edema Neuro: COMMON NORMALS: patient oriented x3 Psych: COMMON NORMALS: mental status grossly normal Discharge Data Studies Completed and Pending Completed Studies During Hospitalization Category Date Time Status CT head wo con* 23030 Stat Cat Scan 10/05/22 19:06 Completed MR head orbits wo/w* 11592/43 Routine MRI 10/06/22 12:29 Completed MR head wo con* [id number] Urgent MRI 10/06/22 02:16 Completed MRA head [MR angio head wo con [id number]] Stat MRI 10/06/22 12:06 Completed Pathology: Surgical [PTH] Stat Pth 10/07/22 12:06 Completed CV. echo complete* [id number] Routine Ultrasound 10/06/22 02:38 Completed Pending at discharge Category Date Time Status HELEN Profile Rheumatology Stat Lab 10/06/22 10:17 Results Acetylcholine Receptor Binding Routine Lab 10/06/22 10:17 Received Basic Metabolic Panel AM LABS Lab 10/10/22 04:00 Ordered Complete Blood Count w/Auto AM LABS Lab 10/10/22 04:00 Ordered Musk Antibody Test Routine Lab 10/06/22 10:17 Received Tick Panel Stat Lab 10/06/22 10:17 Results Radiology Impressions Head CT 10/05/22 19:06 IMPRESSION: 1. No acute intracranial abnormality. 2. Old lacunar infarct noted in the right thalamus. Head MRI 10/06/22 02:16 IMPRESSION: 1. Quality is compromised by motion artifact. 2. No acute infarct. 3. Moderate small vessel chronic ischemic disease and remote RIGHT thalamic lacunar infarct. 4. RIGHT sphenoid sinus disease. Head MRA 10/06/22 12:06 IMPRESSION: 1. No [place] of [place] aneurysm. 2. No vascular malformation identified. 3. Very mild atherosclerosis distal carotid arteries and the proximal middle cerebral arteries. Brain/Orbits MRI 10/06/22 12:29 IMPRESSION: Negative MRI orbits. No masses or abnormal enhancement. No abnormality noted along the course of the 3rd cranial nerve. Laboratory Results WBC 13.0 10^3/uL (4.0-10.0) H 10/09/22 04:50 RBC 5.32 10^6/uL (4.1-5.3) H 10/09/22 04:50 Hgb 14.8 g/dL (11.7-16.6) 10/09/22 04:50 Hct 46.0 % (42.0-52.0) 10/09/22 04:50 MCV 86.5 fl (80-94) 10/09/22 04:50 MCH 27.8 pg (28.0-34.0) L 10/09/22 04:50 MCHC 32.2 g/dL (30.0-36.0) 10/09/22 04:50 RDW 13.8 % (12.1-15.1) 10/09/22 04:50 Plt Count 233 10^3/cmm (130-400) 10/09/22 04:50 MPV 11.5 fL (7.4-10.4) H 10/09/22 04:50 Neut % (Auto) 88.1 % 10/09/22 04:50 Lymph % (Auto) 5.4 % 10/09/22 04:50 [place] % (Auto) 5.3 % 10/09/22 04:50 Eos % (Auto) 0.0 % 10/09/22 04:50 Baso % (Auto) 0.1 % 10/09/22 04:50 Neut # (Auto) 11.50 10^3/uL (1.8-7.7) H 10/09/22 04:50 Lymph # (Auto) 0.7 10^3/uL (0.8-4.8) L 10/09/22 04:50 [place] # (Auto) 0.7 10^3/uL (0.2-0.9) 10/09/22 04:50 Eos # (Auto) 0.0 10^3/uL (0.0-0.8) 10/09/22 04:50 Baso # (Auto) 0.0 10^3/uL (0.0-0.1) 10/09/22 04:50 Nucleated RBC % (auto) 0 % 10/09/22 04:50 Nucleated RBCs # 0.0 /100WBC 10/09/22 04:50 ESR 14 mm/hr (0-10) H 10/06/22 10:17 Sodium 132 mmol/L (136-145) L 10/09/22 04:50 Potassium 4.1 mmol/L (3.5-5.1) 10/09/22 04:50 Chloride 98 mmol/L (98-107) 10/09/22 04:50 Carbon Dioxide 26 mmol/L (22-29) 10/09/22 04:50 Anion Gap 12.1 (5-19) 10/09/22 04:50 BUN 23 mg/dL (8-23) 10/09/22 04:50 Creatinine 0.8 mg/dL (0.7-1.2) 10/09/22 04:50 GFR Calculation Not Reportable 10/09/22 04:50 Glucose 259 mg/dL (65-115) H 10/09/22 04:50 POC Glucose 292 mg/dL (70-110) H 10/09/22 10:46 Estimat Average Glucose 214 10/06/22 05:21 Hemoglobin A1c 9.1 % (4.0-6.0) H 10/06/22 05:21 Calculated Osmolality 287 mOsm/kg (285-295) 10/09/22 04:50 Lactic Acid 0.9 mmol/L (0.5-2.2) 10/06/22 05:21 Calcium 8.8 mg/dL (8.5-10.5) 10/09/22 04:50 Magnesium 2.1 mg/dL (1.7-2.3) 10/07/22 04:02 Total Bilirubin 0.4 mg/dL (0.15-1.2) 10/07/22 04:02 AST 12 U/L (0-40) 10/07/22 04:02 ALT 11 U/L (0-41) 10/07/22 04:02 Alkaline Phosphatase 66 U/L (40-130) 10/07/22 04:02 C-Reactive Protein 4.7 mg/L (0.0-4.9) 10/06/22 10:17 Total Protein 6.6 g/dL (6.6-8.7) 10/07/22 04:02 Albumin 3.7 g/dL (3.5-5.2) 10/07/22 04:02 Globulin 2.9 g/dL (1.3-4.6) 10/07/22 04:02 Triglycerides 184 mg/dL (0-150) H 10/06/22 05:21 Cholesterol 149 mg/dL (0-200) 10/06/22 05:21 LDL Cholesterol, Calc 77 mg/dL (50-129) 10/06/22 05:21 HDL Cholesterol 35 mg/dL (60-100) L 10/06/22 05:21 LDL/HDL Ratio 2.20 RATIO (0.00-3.22) 10/06/22 05:21 Cholesterol/HDL Ratio 4.26 mg/dL (1.0-5.00) 10/06/22 05:21 Vitamin B12 > 2000 pg/mL (232-1245) H 10/06/22 10:17 Folate > 20.0 ng/mL (4.5-32.2) 10/06/22 10:17 Procalcitonin 0.04 ng/mL (0-0.5) 10/06/22 10:17 TSH 1.06 uIU/mL (0.27-4.20) 10/06/22 05:21 Urine Color Light yellow (Yellow) 10/05/22 22:00 Urine Appearance Clear (CLEAR) 10/05/22 22:00 Urine pH 7 (5-7) 10/05/22 22:00 Ur Specific [place] 1.005 (1.005-1.030) 10/05/22 22:00 Urine Protein Neg (Negative) 10/05/22 22:00 Urine Glucose (UA) 4+ (Normal) H 10/05/22 22:00 Urine Ketones 1+ (Negative) H 10/05/22 22:00 Urine Blood Neg (Negative) 10/05/22 22:00 Urine Nitrate Negative (Negative) 10/05/22 22:00 Urine Bilirubin Neg (Negative) 10/05/22 22:00 Urine Urobilinogen Neg mg/dL (Negative) 10/05/22 22:00 Ur Leukocyte Esterase Negative (Negative) 10/05/22 22:00 GLORIA-1 Antibody <1.0 neg AI (<1.0 NEG) 10/06/22 10:17 SS-A Antibody <1.0 neg AI (<1.0 NEG) 10/06/22 10:17 SS-B Antibody <1.0 neg AI (<1.0 NEG) 10/06/22 10:17 Sm (Perez) Antibody <1.0 neg AI (<1.0 NEG) 10/06/22 10:17 FIBERGLASS CON[employer]ER WINDING OPERATOR Antibody <1.0 neg AI (<1.0 NEG) 10/06/22 10:17 Scl-70 Antibody <1.0 neg AI (<1.0 NEG) 10/06/22 10:17 Centromere B Antibody <1.0 neg AI (<1.0 NEG) 10/06/22 10:17 Complement C3c 116 mg/dL (82-185) 10/06/22 10:17 Complement C4c 22 mg/dL (15-53) 10/06/22 10:17 RPR Nonreactive (Nonreactive) 10/06/22 10:17 Lyme Ab (Western Blot) <0.90 index 10/06/22 10:17 Lyme IgG (Western Blot) Cancelled 10/06/22 10:17 Lyme IgG (Western Blot 2) Cancelled 10/06/22 10:17 Lyme IgG 18 kDa Band Cancelled 10/06/22 10:17 Lyme IgG 23 kDa Band Cancelled 10/06/22 10:17 Lyme IgG 28 kDa Band Cancelled 10/06/22 10:17 Lyme IgG 30 kDa Band Cancelled 10/06/22 10:17 Lyme IgG 39 kDa Band Cancelled 10/06/22 10:17 Lyme IgG 41 kDa Band Cancelled 10/06/22 10:17 Lyme IgG 45 kDa Band Cancelled 10/06/22 10:17 Lyme IgG 58 kDa Band Cancelled 10/06/22 10:17 Lyme IgG 66 kDa Band Cancelled 10/06/22 10:17 Lyme IgG 93 kDa Band Cancelled 10/06/22 10:17 Lyme IgM Ab (WB) Cancelled 10/06/22 10:17 Lyme IgM Ab (Immblot) Cancelled 10/06/22 10:17 Lyme IgM 23 kDa Band Cancelled 10/06/22 10:17 Lyme IgM 39 kDa Band Cancelled 10/06/22 10:17 Lyme IgM 41 kDa Band Cancelled 10/06/22 10:17 Vitals Last Vital Signs Temp 97.9 F 10/09/22 11:37 Pulse 59 L 10/09/22 11:37 Resp 20 H 10/09/22 11:37 BP 135/73 10/09/22 11:37 Pulse Ox 94 10/09/22 11:37 O2 Del Method Room Air 10/09/22 11:37 Discharge Plan Discharge Patient Disposition: Home Condition: Stable Prescriptions: New tramadol 50 mg tablet 50 mg PO Q6H PRN (Reason: pain) Qty: 30 0RF Rx Instructions: Do not drink or drive while on narcotics pantoprazole 40 mg Tablet,Delayed Release (Dr/Ec) 40 mg PO DAILY 30 Days Qty: 30 0RF insulin aspart U-100 [Novolog FlexPen U-100 Insulin] 100 unit/mL (3 mL) insulin pen See Rx Instructions .ROUTE .COMPLEX MDD 20 Qty: 15 0RF Rx Instructions: Inject, subcuT, 3 times daily, after meals, based on sliding scale provided insulin glargine [Basaglar KwikPen U-100 Insulin] 100 unit/mL (3 mL) insulin pen 8 unit SUBCUT Q12H 30 Days Qty: 15 0RF prednisone 10 mg tablet See Rx Instructions .ROUTE .COMPLEX Qty: 208 0RF Rx Instructions: 60 mg (6 tabs) for 2 weeks, followed by 50 mg(5 tabs) for 2 weeks, followed by 40 mg (4 tabs) for 2 weeks Continued Daily Vitamin Tablet 1 tab PO DAILY albuterol sulfate 2.5 mg /3 mL (0.083 %) Solution For Nebulization 2.5 mg INHALATION QID PRN (Reason: cough or wheezing) atorvastatin 10 mg Tablet 10 mg PO QPM Rx Instructions: take one tablet daily at bedtime for 90 days started 05/26/22 amlodipine 5 mg Tablet 5 mg PO DAILY aspirin 81 mg Tablet,Delayed Release (Dr/Ec) 81 mg PO DAILY metformin 1,000 mg Tablet 1,000 mg PO BIDWMEAL zinc 50 mg Tablet 50 mg PO DAILY albuterol 90 mcg/actuation Aerosol 180 mcg INHALATION Q4H PRN (Reason: cough or wheezing) Rx Instructions: inhale 2 puff every 4-6 hours as needed for 30 days started 05/12/22 irbesartan 300 mg Tablet 300 mg PO DAILY Rx Instructions: 300 mg daily for 90 days started 08/12/22 vitamin E 50 unit Capsule 50 unit PO DAILY Rx Instructions: unknown dose Fish Oil 1,000 mg Capsule 1 cap PO DAILY Cinnamon 500 mg Capsule 500 mg PO DAILY Voltaren 1 % Gel 2 g TOPICAL QID Rx Instructions: apply to single elbow, wrist or hand; for hand includes palm/fingers/back of hand Vitamin D3 50 mcg (2,000 unit) Capsule 50 mcg PO DAILY I-Caps 280-10-2 mg Capsule 1 cap PO DAILY garlic 200 mg Tablet 200 mg PO DAILY Farxiga 10 mg Tablet 10 mg PO DAILY Rx Instructions: take one tablet by mouth daily in the morning for 90 days started 07/25/22 Trelegy Ellipta 100-62.5-25 mcg Blister With Device 1 inh INHALATION DAILY Discharge Orders: Discharge Order (Routine); Ordered 10/09/22 Ordered By: Regino Cm Referrals: Mikaela Cuevas MD [Physician] - 1 month Irvin Manuel MD [Physician] - 4-7 days (to remove dung in 5 days if possible) Jose Eduardo Wakefiedl MD [Physician] - 2 weeks ([facility]) Jatinder Clark [Physician] - 1-3 days Discharge Diet: Usual diet Discharge Activity: Resume usual activity Patient Instructions: Opioid Safety Activity Restrictions/Additional Instructions: Keep wound dry and clean. May shower. Apply antibiotic ointment as dressing bid. Wash off old antibiotic ointment. RTC in 5 days to remove dung and to go over path results. Call for fever over 101F, redness, increased pain and warmth and drainage. -For your giant cell arteritis -I have discharged you on prednisone treatment -A very slow taper -60 mg for 2 weeks, followed by 50 mg for 2 weeks, followed by 40 mg for 2 weeks, then decrease by 5 mg every 2 weeks -However this taper is going to dependent on what your ESR and your CRP are -Your ESR is 14, your CRP is 5 -I am going to leave up the tapering of your prednisone based on rheumatology's recommendation, and also can have you follow-up with rheumatology for consideration of tocilizumab -Monitor your blood sugars very closely -Please see your primary care provider -Take Lantus 8 units every 12 hours -As your prednisone decreases your insulin requirements might decrease monitor very closely for hypoglycemia -I discharged you on a NovoLog insulin sliding scale --Please monitor your blood sugars closely -Monitor your blood sugars 3 times daily as after meals -Please record your blood sugars, and a blood sugar log -For your NovoLog -Please inject blood sugar after meals based on sliding scale provided -Do not inject insulin if you do not eat as hypoglycemia kills -This is a NovoLog sliding scale -Insulin sliding ?fingerstick? Insulin ?141-180?0 units/sq 181-220?2 units/sq ?221-260?4 units/sq ?261-300 6 units/sq ?301-350?8 units/sq ?351-400 10 units/sq ?401-450?12 units/sq >450? 14units/sq -If your blood sugar is greater than 500 go to the emergency room -If your blood sugar is less than 60 or at anytime you feel lightheaded or dizzy or diaphoretic or have chest palpitations check your blood sugar, and eat a hard candy or drink orange juice and go immediately to the emergency room -Remember hypoglycemia kills, so if his blood sugar is less than 60 we have to increase it by taking in a sugary meal such as a hard candy or orange juice and go to the emergency room -If you have any questions please call us where here to help -Please follow-up with Dr. Clark - I am have you follow-up with Dr. Cuevas, for cranial nerve III palsy -You do have evidence of left atrial dilatation and would have you follow-up with cardiology Discharge Attestations Time Spent in Discharge Care*: greater than 30 min Quality Metrics Clinical Quality Measures [ No reported AMI, CVA or VTE this stay] Coding Level of Care Code 02097 Total time (in minutes) for Discharge: 50 Diagnoses Temporal giant cell arteritis M31.6
[2022-10-09] MEDS: predniSONE 20 mg Tablet 60 MG PO (12:20)
--- NOTE | 2022-10-09 14:10 | PM.PN ---
Subjective Subjective: No complaints Vitals/I&O/Wt Last Vital Signs Temp 97.9 F 10/09/22 11:37 Pulse 59 L 10/09/22 11:37 Resp 20 H 10/09/22 11:37 BP 135/73 10/09/22 11:37 Pulse Ox 94 10/09/22 11:37 O2 Del Method Room Air 10/09/22 11:37 10/08/22 10/09/22 10/09/22 22:59 06:59 14:59 Intake Total 600 / 1218 720 / 720 Balance 600 / 1218 720 / 720 Physical Exam Narrative: Patient is a well developed well nourished and in NAD and is afebrile with vitals stable and is answering questions appropriately with a normal affect and is alert and oriented x3 HEENT: normocephalic with normal external ears and nonicteric, oral mucosa moist and dentition normal for age, trachea midline with no large masses visualized Heart: RRR, no gallops murmurs or rubs, normal PMI with no thrills Lungs: normal excursions, no loud audible wheezing, no subcutaneous emphysema Abdomen: nondistended, no gross hepatosplenomegaly, no masses, no rigidity or rebound, no loud borborygmi Neuro: nonfocal, MARIN, grossly normal sensation Musculoskeletal: good muscle tone, no fasciculations, normal gait Skin: pink warm and dry with no rashes or ecchymosis Vascular: good radial pulses, no ulceration, less than 2 second capillary refill in hand : deferred Data 10/09/22 04:50 10/09/22 04:50 A&P Assessment and plan (1) Temporal giant cell arteritis: Plan Wound without infection. RTC 5 days to remove dung Attestations Medical Necessity Statement*: see hopitalist note Coding Level of Care Code Acute Code for Chg Fwd Diagnoses Temporal giant cell arteritis M31.6
[2022-10-10 10:30] LABS: THYROID PEROXIDASE ANTIBODIES <1 IU/mL (<9)
[2022-10-11 14:15] LABS: ANA SCREEN, IFA NEGATIVE (NEGATIVE)
[2022-10-12 00:14] LABS: Acetylcholine Receptor Binding <0.30 nmol/L
[2022-10-12 17:25] LABS: E. Chaffeensis AB IGG <1:64; E. Chaffeensis AB IGM <1:20
[2022-10-13 17:35] LABS: RMSF IGG NOT DETECTED; RMSF IGM NOT DETECTED
[2022-10-14 13:00] LABS: COMPLEMENT, TOTAL (CH50) 42 U/mL (31-60)
[2022-10-15 21:50] LABS: DNA AB (DS) CRITHIDIA,IFA NEGATIVE (NEGATIVE)
== END 2022-10-09 15:28 | disposition home or self-care (01) | DRG 517 ==
LOC: ER 23:49 → MEDSURG 23:52
PROVIDERS: Physician Assistant; Specialist; Admitting Provider Internal Medicine; Emergency Provider Emergency Medicine; Visit Provider Family Medicine
PROC: 03BT0ZX Excision of Left Temporal Artery, Open Approach, Diagnostic (ICD-10-PCS; CPT 37609; principal; 2022-10-07 10:10)
DX: M31.6 Other giant cell arteritis (principal); H49.02 Third [oculomotor] nerve palsy, left eye; E11.9 Type 2 diabetes mellitus without complications; I10 Essential (primary) hypertension; E78.5 Hyperlipidemia, unspecified; H53.2 Diplopia; Z86.73 Personal history of transient ischemic attack (TIA), and cerebral infarction without residual deficits; H02.402 Unspecified ptosis of left eyelid; Z79.51 Long term (current) use of inhaled steroids; Z79.82 Long term (current) use of aspirin
CPT/HCPCS: 36415; 36416; 70450; 70543; 70544; 70551; 70553; 80048; 80053; 80061; 81003; 82607; 82746; 82962; 83036; 83519; 83605; 83735; 84145; 84443; 85025; 85651; 86140; 86160; 86162; 86235; 86255; 86376; 86592; 86618; 86666; 86757; 93005; 93306; 96372; 99285; A9577; G0378; J1644; J1815; J2704; J2930; J3010; J7030; J7050; J7512

== ENCOUNTER → 2022-10-20 10:07 | Outpatient (BNVA) | payer MEDICARE, SELFPAY | PROVIDERS: PCP Family Medicine; Visit Provider Psychiatry & Neurology Neurology | DX: M31.6 Other giant cell arteritis (principal); H49.02 Third [oculomotor] nerve palsy, left eye; E11.9 Type 2 diabetes mellitus without complications; E78.5 Hyperlipidemia, unspecified; I10 Essential (primary) hypertension; Z79.4 Long term (current) use of insulin; Z79.84 Long term (current) use of oral hypoglycemic drugs; Z86.73 Personal history of transient ischemic attack (TIA), and cerebral infarction without residual deficits | CPT/HCPCS: 99203 ==

== ENCOUNTER → 2022-10-27 08:45 | Outpatient (BNVA) | payer MEDICARE, SELFPAY | PROVIDERS: PCP Family Medicine; Visit Provider Internal Medicine Rheumatology | DX: M31.6 Other giant cell arteritis (principal); Z79.899 Other long term (current) drug therapy; H49.02 Third [oculomotor] nerve palsy, left eye; E11.8 Type 2 diabetes mellitus with unspecified complications; Z79.4 Long term (current) use of insulin; Z11.1 Encounter for screening for respiratory tuberculosis; Z11.59 Encounter for screening for other viral diseases | CPT/HCPCS: 99205 ==

== ENCOUNTER → 2022-12-06 11:21 | Outpatient (BNVA) | payer MEDICARE, SELFPAY | PROVIDERS: PCP Family Medicine; Visit Provider Internal Medicine Rheumatology | DX: Z79.899 Other long term (current) drug therapy (principal); M31.6 Other giant cell arteritis; H49.02 Third [oculomotor] nerve palsy, left eye; E11.9 Type 2 diabetes mellitus without complications | CPT/HCPCS: 99214 ==

== ENCOUNTER → 2023-03-14 10:49 | Outpatient (BNVA) | payer MEDICARE, SELFPAY | PROVIDERS: PCP Family Medicine; Visit Provider Internal Medicine Rheumatology | DX: Z79.899 Other long term (current) drug therapy (principal); M31.6 Other giant cell arteritis; H49.02 Third [oculomotor] nerve palsy, left eye; E11.9 Type 2 diabetes mellitus without complications | CPT/HCPCS: 36415; 80076; 82565; 85025; 86140; 99214 ==

== ENCOUNTER → 2023-04-27 13:48 | Outpatient (BNVA) | payer MEDICARE, SELFPAY | PROVIDERS: PCP Family Medicine; Visit Provider Surgery | DX: S60.451A Superficial foreign body of left index finger, initial encounter (principal); W45.8XXA Other foreign body or object entering through skin, initial encounter | CPT/HCPCS: 10120; 73130; 99202; 99204 ==

== ENCOUNTER → 2023-05-04 12:58 | Outpatient (BNVA) | payer MEDICARE, SELFPAY | PROVIDERS: PCP Family Medicine; Visit Provider Nurse Practitioner | DX: S60.451A Superficial foreign body of left index finger, initial encounter; W45.8XXA Other foreign body or object entering through skin, initial encounter | CPT/HCPCS: 99213 ==

== ENCOUNTER 2024-07-30 11:48 | Emergency (ER) | payer MEDICARE, SELFPAY ==
[2024-07-30 11:55] VITALS: BP 162/79; PULSE 75; RESP 18; TEMP 36.4; O2SAT 97
--- NOTE | 2024-07-30 12:02 | W.ED.NEUROSD ---
Documented by User: EMILY Vines 07/30/24 13:43 HPI - Neuro Symptoms/Deficit General: Chief Complaint: Neuro Symptoms/Deficit Stated Complaint: L side facial droop, states he has bells palsy Time Seen by Provider: 07/30/24 11:57 Source: patient Mode of arrival: ambulatory Limitations: no limitations History of Present Illness: Patient is a 74-year-old male presents to ED today with a complaint of pain to the left side of his face associated with recent diagnosis of Bennett's palsy. Patient states approximately 2 weeks ago he began having left-sided facial drooping and was subsequently seen by his primary care provider and placed on steroids and antivirals. Patient states he has finished this medication. 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 He also has biopsy confirmed temporal arteritis. He had been following up with rheumatology for this. Patient states over the past few days he is having pain to the left side of his face around his left jaw/TMJ/ear and feels like it is swollen. He states pain is intermittent and will have several episodes daily lasting anywhere from 30 to 45 minutes. Onset (ago): week(s) Location: left face Severity: moderate Relieving factors: none Exacerbating factors: none On Anticoagulants: No Associated symptoms: Deny chest pain, headache(s), malaise, nausea or vomiting Treatments Prior to Arrival: none Related Data Home Medications ?Medication ?Instructions ?Recorded ?Confirmed amlodipine 5 mg tablet 5 mg PO DAILY 10/06/22 07/30/24 atorvastatin 10 mg tablet 10 mg PO QPM 10/06/22 07/30/24 dapagliflozin propanediol 10 mg 10 mg PO DAILY 10/06/22 07/30/24 tablet (Farxiga) irbesartan 300 mg tablet 300 mg PO DAILY 10/06/22 07/30/24 insulin glargine U-300 conc 300 15 unit SUBCUT DAILY 07/30/24 07/30/24 unit/mL (1.5 mL) subcutaneous pen (Toujeo SoloStar U-300 Insulin) Previous Rx's ?Medication ?Instructions ?Recorded insulin aspart U-100 100 unit/mL See Rx Instructions .Route 10/09/22 (3 mL) subcutaneous pen (Novolog .COMPLEX #15 mL FlexPen U-100 Insulin aspart) prednisone 10 mg tablet 10 mg PO DAILY 10 days #41 tabs 07/30/24 pregabalin 75 mg capsule (Lyrica) 75 mg PO BID #60 caps 07/30/24 Allergies Allergy/AdvReac Type Severity Reaction Status Date / Time No Known Allergies Allergy Verified 04/27/23 15:33 Review of Systems Const: Denies: fever(s), chills, body aches, fatigue or malaise Eyes: Reports: eye discomfort (L due to inability to close-using lubricating eye drops ) ENMT: Reports: sinus pain; Denies: odynophagia, mouth pain, swelling of lips/tongue, oral sores, change in hearing, tinnitus, disequilibrium or nasal congestion Card: Denies: chest pain Resp: Denies: dyspnea GI: Denies: nausea or vomiting Musc: Denies: neck pain Neuro: Reports: other (L facial palsy ); Denies: headache(s) PFSH ED PFSH: Medical History Foreign body of finger of left hand, superficial Chronic steroid use Hyperlipidemia Hypertension Diabetes Surgical History No significant past surgical history Social History Smoking and tobacco/nicotine status: never used tobacco/nicotine Alcohol intake: never Substance/Drug Use: never Physical Exam Const: COMMON NORMALS: no acute distress, average body habitus, patient oriented x3, no limitations, healthy appearing, alert and well nourished GENERAL APPEARANCE: cooperative ORIENTATION/CONSCIOUSNESS: Yes awake, Yes oriented to person, Yes oriented to place and Yes oriented to time HENMT: COMMON NORMALS: normocephalic and atraumatic HEAD & SCALP: normal to inspection, normocephalic and atraumatic FACE & SINUS: edema on the left (mild), Facial tenderness on exam of face and sinuses and other (L sided facial palsy); no erythema Eye: COMMON NORMALS: EOMs intact bilaterally GENERAL EYE: appearance normal, both eyes and all related structures OTHER: inability to close L eye Neck/C-Spine: COMMON NORMALS: no lymphadenopathy and no meningeal signs GENERAL: No anterior neck swelling and No submandibular swelling Neuro: CLARA COMA SCALE: document GCS findings [place] coma scale eye opening: Spontaneous [place] coma scale verbal response: Orientated [place] coma scale motor response: Obey commands [place] coma scale total score: 15 COMMON NORMALS: patient oriented x3, moves all extremities and no sensory deficits noted SENSORIUM/ORIENTATION: Yes alert, Yes oriented to person, Yes oriented to place and Yes oriented to time MENINGEAL SIGNS: Yes no meningeal signs CRANIAL NERVES: Yes CN VII (facial) Laterality: left CN VII left: facial droop, flattened naso-labial fold, unable to puff cheeks, unable to raise eyebrow(s), weak closing of eye(s) and asymmetrical smile SPEECH: speech normal GAIT: Yes Normal gait present MOTOR EXAM: 5/5 motor strength present throughout Skin: COMMON NORMALS: no rashes or lesions noted GENERAL SKIN EXAM: no rashes or lesions noted Course Vital Signs: Vital signs: Vital Signs Temperature 97.5 F L 07/30/24 11:55 Pulse Rate 64 07/30/24 13:04 Respiratory Rate 18 07/30/24 12:48 Blood Pressure 153/92 07/30/24 13:04 Pulse Oximetry 93 07/30/24 13:04 Oxygen Delivery Me thod Room Air 07/30/24 12:30 MDM - Neuro Symptoms/Deficit Medical Decision Making Patient has had his VII cranial nerve palsy over the past 2 weeks. He has completed his steroid and antiviral. He is now having pain and reported edema. Clinically there may be some scant edema present but no obvious mass appreciated. He has no other neurologic deficits or concerns. Spoke to Dr. La about workup from the emergency department. He is recommending outpatient follow-up with neurology. Did recommend placing him on an additional steroid taper and Lyrica. Medical Records I reviewed the patient's medical records. No radiology studies performed this visit Discharge Plan Discharge Patient Disposition: Home Clinical Impression: Left-sided Bennett's palsy Condition: Stable Prescriptions: New prednisone 10 mg tablet 10 mg PO DAILY 10 Days Qty: 41 0RF Rx Instructions: 6 tab on day 1-2, 5 tab on day 3-4, 4 tab on day 5-6, 3 tabs on day 7-8, 2 tab on day 9-10, 1 tab on day 11 pregabalin [Lyrica] 75 mg capsule 75 mg PO BID Qty: 60 0RF No Action atorvastatin 10 mg Tablet 10 mg PO QPM amlodipine 5 mg Tablet 5 mg PO DAILY irbesartan 300 mg Tablet 300 mg PO DAILY dapagliflozin propanediol [Farxiga] 10 mg Tablet 10 mg PO DAILY insulin aspart U-100 [Novolog FlexPen U-100 Insulin] 100 unit/mL (3 mL) insulin pen See Rx Instructions .ROUTE .COMPLEX MDD 20 Qty: 15 0RF Rx Instructions: Inject, subcuT, 3 times daily, after meals, based on sliding scale provided insulin glargine U-300 conc [Toujeo SoloStar U-300 Insulin] 300 unit/mL (1.5 mL) insulin pen 15 unit SUBCUT DAILY Discharge Orders: Discharge ED (Routine); Ordered 07/30/24 Ordered By: Kristen Tyler Referrals: Sarah Otero MD [Primary Care Provider] - Patient Instructions: Bennett Palsy (ED) Activity Restrictions/Additional Instructions: As we discussed, case management should contact you to help set you up with your follow-up appointment with neurology for further evaluation and possible imaging regarding your Bennett's palsy. You may continue to follow-up with primary care. May return to the emergency department worsening or uncontrollable pain, worsening facial swelling and edema, fevers, generally feeling worse or unwell, or any other concerns you may have. Print Language: Micronesian Coding Level of Care Code ED [employer] Supervisor for Zeg Jj Documented by User: Cristofer La DO 07/30/24 14:39 HPI - Neuro Symptoms/Deficit General: Chief Complaint: Neuro Symptoms/Deficit Stated Complaint: L side facial droop, states he has bells palsy Time Seen by Provider: 07/30/24 11:57 Related Data Home Medications ?Medication ?Instructions ?Recorded ?Confirmed amlodipine 5 mg tablet 5 mg PO DAILY 10/06/22 07/30/24 atorvastatin 10 mg tablet 10 mg PO QPM 10/06/22 07/30/24 dapagliflozin propanediol 10 mg 10 mg PO DAILY 10/06/22 07/30/24 tablet (Farxiga) irbesartan 300 mg tablet 300 mg PO DAILY 10/06/22 07/30/24 insulin glargine U-300 conc 300 15 unit SUBCUT DAILY 07/30/24 07/30/24 unit/mL (1.5 mL) subcutaneous pen (Toujeo SoloStar U-300 Insulin) Previous Rx's ?Medication ?Instructions ?Recorded insulin aspart U-100 100 unit/mL See Rx Instructions .Route 10/09/22 (3 mL) subcutaneous pen (Novolog .COMPLEX #15 mL FlexPen U-100 Insulin aspart) prednisone 10 mg tablet 10 mg PO DAILY 10 days #41 tabs 07/30/24 pregabalin 75 mg capsule (Lyrica) 75 mg PO BID #60 caps 07/30/24 Allergies Allergy/AdvReac Type Severity Reaction Status Date / Time No Known Allergies Allergy Verified 04/27/23 15:33 [facility] ED PFSH: Medical History Foreign body of finger of left hand, superficial Chronic steroid use Hyperlipidemia Hypertension Diabetes Surgical History No significant past surgical history Social History Smoking and tobacco/nicotine status: never used tobacco/nicotine Alcohol intake: never Substance/Drug Use: never Physical Exam Neuro: CLARA COMA SCALE: document GCS findings [place] coma scale total score: 15 Course Vital Signs: Vital signs: Vital Signs Temperature 97.5 F L 07/30/24 11:55 Pulse Rate 64 07/30/24 13:04 Respiratory Rate 18 07/30/24 12:48 Blood Pressure 153/92 07/30/24 13:04 Pulse Oximetry 93 07/30/24 13:04 Oxygen Delivery Me thod Room Air 07/30/24 12:30 MDM - Neuro Symptoms/Deficit Medical Decision Making Patient has had his VII cranial nerve palsy over the past 2 weeks. He has completed his steroid and antiviral. He is now having pain and reported edema. Clinically there may be some scant edema present but no obvious mass appreciated. He has no other neurologic deficits or concerns. Spoke to Dr. La about workup from the emergency department. He is recommending outpatient follow-up with neurology. Did recommend placing him on an additional steroid taper and Lyrica. Chart reviewed and patient discussed with midlevel. Agree with assessment and plan. Discharge Plan Discharge Patient Disposition: Home Clinical Impression: Left-sided Bennett's palsy Condition: Stable Prescriptions: New prednisone 10 mg tablet 10 mg PO DAILY 10 Days Qty: 41 0RF Rx Instructions: 6 tab on day 1-2, 5 tab on day 3-4, 4 tab on day 5-6, 3 tabs on day 7-8, 2 tab on day 9-10, 1 tab on day 11 pregabalin [Lyrica] 75 mg capsule 75 mg PO BID Qty: 60 0RF No Action atorvastatin 10 mg Tablet 10 mg PO QPM amlodipine 5 mg Tablet 5 mg PO DAILY irbesartan 300 mg Tablet 300 mg PO DAILY dapagliflozin propanediol [Farxiga] 10 mg Tablet 10 mg PO DAILY insulin aspart U-100 [Novolog FlexPen U-100 Insulin] 100 unit/mL (3 mL) insulin pen See Rx Instructions .ROUTE .COMPLEX MDD 20 Qty: 15 0RF Rx Instructions: Inject, subcuT, 3 times daily, after meals, based on sliding scale provided insulin glargine U-300 conc [Toujeo SoloStar U-300 Insulin] 300 unit/mL (1.5 mL) insulin pen 15 unit SUBCUT DAILY Discharge Orders: Discharge ED (Routine); Ordered 07/30/24 Ordered By: Kristen Tyler Referrals: Sarah Otero MD [Primary Care Provider] - Patient Instructions: Bennett Palsy (ED) Activity Restrictions/Additional Instructions: As we discussed, case management should contact you to help set you up with your follow-up appointment with neurology for further evaluation and possible imaging regarding your Bennett's palsy. You may continue to follow-up with primary care. May return to the emergency department worsening or uncontrollable pain, worsening facial swelling and edema, fevers, generally feeling worse or unwell, or any other concerns you may have. Print Language: Micronesian Coding Level of Care Code ED [employer] And Point [employer] Supervisor for Flako Gardner
[2024-07-30 12:19] VITALS: BP 162/86; PULSE 67; O2SAT 96
[2024-07-30 12:30] VITALS: BP 163/79; PULSE 67; O2SAT 96
[2024-07-30 12:48] VITALS: RESP 18; O2SAT 95
[2024-07-30] MEDS: morphine 4 mg/mL SDV 1 mL IM (12:48)
[2024-07-30] MEDS: dexamethasone 10 mg/mL INJ 8 MG IM (12:49)
[2024-07-30] MEDS: ondansetron 2 mg/ML SDV 2 mL 4 MG IM (12:50)
[2024-07-30 13:04] VITALS: BP 153/92; PULSE 64; O2SAT 93
--- NOTE | 2024-07-31 08:17 | DCPLANNER ---
Message sent to Neurology for follow up- Patient has had his VII cranial nerve palsy over the past 2 weeks. He has completed his steroid and antiviral. He is now having pain and reported edema. Clinically there may be some scant edema present but no obvious mass appreciated. He has no other neurologic deficits or concerns. Spoke to Dr. La about workup from the emergency department. He is recommending outpatient follow-up with neurology. Did recommend placing him on an additional steroid taper and Lyrica.
== END 2024-07-30 13:05 | disposition home or self-care (01) ==
PROVIDERS: Emergency Provider Physician Assistant; PCP Family Medicine
DX: G51.0 Bell's palsy (principal); Z79.4 Long term (current) use of insulin; E11.9 Type 2 diabetes mellitus without complications; I10 Essential (primary) hypertension; E78.5 Hyperlipidemia, unspecified
CPT/HCPCS: 96372; 99284; J1100; J2270; J2405

== ENCOUNTER → 2024-08-13 15:09 | Outpatient (BNVA) | payer MEDICARE, SELFPAY | PROVIDERS: PCP Family Medicine; Visit Provider Internal Medicine Rheumatology | DX: M31.6 Other giant cell arteritis (principal); E11.9 Type 2 diabetes mellitus without complications; G51.0 Bell's palsy | CPT/HCPCS: 36415; 80076; 82565; 85025; 85651; 86140; 99215 ==

== ENCOUNTER 2024-08-22 13:37 | Outpatient (CLI) | payer MEDICARE, SELFPAY ==
--- NOTE | 2024-08-22 14:30 | MR_ITS ---
WS: [id number] MRA CAROTID ARTERIES HISTORY: G51.0 - Bennett's palsy COMPARISON: None available. TECHNIQUE: MRA is performed with intravenous gadolinium. MIP and source images are reviewed. There is artifact in the upper thoracic aorta. The origins of the carotid arteries are difficult to visualized. Proximal LEFT subclavian artery is not visualized and could be occluded or secondary to motion. Right: Normal cervical carotid artery. No internal/external carotid artery stenosis. Left: LEFT cervical carotid artery arises from the innominate artery. Internal and external cervical carotid arteries are normal. Subclavian Arteries: Proximal LEFT subclavian artery is not opacified. This may be motion artifact or occlusion. RIGHT subclavian artery overlap by venous flow but does appear to be intact. Vertebral Arteries: Normal. MR/MR angio neck w con* [id number] IMPRESSION: 1. Absent flow noted within the proximal LEFT subclavian artery. Recommend CT angiogram thoracic aorta with attention to the LEFT subclavian artery. IV injec tion should be on the RIGHT. High-grade stenosis or occlusion LEFT subclavian a rtery needs to be excluded. 2. No cervical carotid artery stenosis. 3. Both vertebral arteries are identified. The LEFT vertebral artery is arisin g from the LEFT subclavian artery at the beginning of contrast opacification. T his may be reversal of flow in the LEFT subclavian artery.
--- NOTE | 2024-08-22 15:15 | MR_ITS ---
WS: [id number] MRI BRAIN WITH HIGH-RESOLUTION IMAGING THROUGH THE INTERNAL AUDITORY CANALS WITHOUT AND WITH CONTRAST HISTORY: I63.9 - Cerebral infarction, unspecified COMPARISON: 10/06/2022 TECHNIQUE: Multiplanar, multisequence imaging is performed through the brain. Additional 3 mm imaging performed in multiple planes through the internal auditory canal. Postcontrast imaging with 19 ml's of MultiHance. No acute intracranial hemorrhage, midline shift, edema or mass effect. Mild symmetric cerebral and cerebellar atrophy and small vessel disease. Small vessel disease also noted bilaterally in the [place]. No prior infarct. No inferior displacement of the cerebellar tonsils. Ventricles and extra-axial spaces are normal. No inferior displacement of cerebellar tonsils. Clivus and pituitary gland are normal. Cranial nerves VII and VIII complexes: Enhancing tympanic and labyrinthine segments of the facial nerve on the LEFT. No obvious enhancement of the geniculate ganglion as this can normally enhance. Additional enhancement of the mastoid segment of the facial nerve extending towards the stylomastoid foramen. Cerebellopontine angles: Normal. Paranasal sinuses: Normal. Mastoid air cells: Normal. Calvarium and scalp: Normal. Visualized [place] and dural venous sinuses demonstrate no abnormality. MR/MR iac's wo/w con* [id number] IMPRESSION: 1. Findings of left-sided Bennett's palsy. There is enhancement of a long segment of the facial nerve. Enhancement including the tympanic and labyrinthine segme nts with extension into the mastoid segment. 2. No acute infarct. 3. Mild cerebral and cerebellar volume loss and small vessel disease.
[2024-08-22] MEDS: gadobenate dimeglumine 20 mL vial 19 ML IV (15:55)
--- NOTE | 2024-08-22 16:00 | MR_ITS ---
WS: [id number] MRA ANGIOGRAPHY [place] HISTORY: G51.0 - Bennett's palsy COMPARISON: None available. TECHNIQUE: 3-D MR angiography is performed of the [place]. All images are reviewed including source images. Distal vertebral and basilar arteries are intact with no significant stenosis or plaque. Posterior cerebral arteries are normal course and caliber. Posterior communicating arteries are both patent. Intracranial portion of the internal carotid arteries are normal course and caliber. No significant atherosclerosis, stenosis or aneurysm identified. Middle and anterior cerebral arteries are both patent with no significant disease. Anterior communicating artery is also normal. MR/MR angio head wo con [id number] IMPRESSION: Normal MRA [place].
== END 2024-08-22 13:38 | disposition home or self-care (01) ==
PROVIDERS: PCP Family Medicine; Visit Provider Internal Medicine Rheumatology
DX: G51.0 Bell's palsy (principal); I63.9 Cerebral infarction, unspecified; R93.0 Abnormal findings on diagnostic imaging of skull and head, not elsewhere classified; G31.89 Other specified degenerative diseases of nervous system; I67.89 Other cerebrovascular disease; R93.89 Abnormal findings on diagnostic imaging of other specified body structures
CPT/HCPCS: 70544; 70548; 70553; A9577

== ENCOUNTER → 2024-09-04 16:30 | Outpatient (BNVA) | payer MEDICARE, SELFPAY | PROVIDERS: PCP Family Medicine; Visit Provider Internal Medicine Cardiovascular Disease | DX: I70.8 Atherosclerosis of other arteries (principal); H49.02 Third [oculomotor] nerve palsy, left eye; Z87.891 Personal history of nicotine dependence; R07.9 Chest pain, unspecified | CPT/HCPCS: 93005; 99204 ==

== ENCOUNTER 2024-09-17 15:01 | Outpatient (CLI) | payer MEDICARE, SELFPAY ==
[2024-09-17] MEDS: iohexol 350 mg/mL 500 mL Btl (per mL) IV (15:32)
--- NOTE | 2024-09-17 15:45 | CT_ITS ---
WS: [id number] CTA THORACIC TECHNIQUE: Contrast enhanced CTA of the thoracic aorta with coronal and sagittal reformatted images and maximum intensity projection (MIP) images. CLINICAL INFORMATION: arm pain COMPARISON: MRA 08/22/2024 DLP: 773.[address] scans at [facility] use at least one of these dose optimization techniques: automated exposure control; mA and/or kV adjustment per patient size (includes targeted exams where dose is matched to clinical indication); or iterative reconstruction. FINDINGS: Aortic calcification. Normal caliber thoracic aorta. Coronary calcification. Proximal main pulmonary arteries are normal. Proximal LEFT subclavian artery is patent. No significant stenosis. Tortuous LEFT proximal subclavian artery. LEFT vertebral artery is patent. RIGHT subclavian artery is patent. Mild thoracic kyphosis. Cholecystectomy clips. Moderate esophageal hiatal hernia. Lungs are well aerated. Subsegmental atelectasis LEFT lower lobe. CT/CT angio chest [id number] IMPRESSION: 1. No significant stenosis LEFT proximal subclavian artery. LEFT subclavian ar sravani is patent. 2. Both proximal vertebral arteries are patent. 3. Normal caliber thoracic aorta. 4. Mild aortic and coronary calcification. 5. Moderate esophageal hiatal hernia.
== END 2024-09-17 15:02 | disposition home or self-care (01) ==
LOC: RAD 15:03
PROVIDERS: PCP Family Medicine; Visit Provider Internal Medicine Cardiovascular Disease
DX: I70.0 Atherosclerosis of aorta (principal); I25.10 Atherosclerotic heart disease of native coronary artery without angina pectoris; M79.603 Pain in arm, unspecified
CPT/HCPCS: 71275

== ENCOUNTER → 2024-11-05 14:05 | Outpatient (BNVA) | payer MEDICARE, SELFPAY | PROVIDERS: PCP Family Medicine; Visit Provider Internal Medicine Rheumatology | DX: M31.6 Other giant cell arteritis (principal); E11.9 Type 2 diabetes mellitus without complications; G51.0 Bell's palsy | CPT/HCPCS: 36415; 80076; 82306; 82565; 85025; 85651; 86140; 86480; 86704; 86803; 87340; 87522; 99214 ==

== ENCOUNTER → 2024-11-14 11:27 | Outpatient (BNVA) | payer MEDICARE, SELFPAY | PROVIDERS: PCP Family Medicine; Visit Provider Psychiatry & Neurology Neurology | DX: G51.0 Bell's palsy (principal); H49.02 Third [oculomotor] nerve palsy, left eye; M31.6 Other giant cell arteritis; E11.9 Type 2 diabetes mellitus without complications; I10 Essential (primary) hypertension; E78.5 Hyperlipidemia, unspecified; Z09 Encounter for follow-up examination after completed treatment for conditions other than malignant neoplasm; I63.9 Cerebral infarction, unspecified | CPT/HCPCS: 99212 ==